=== PATIENT | female | born 1995 | race Caucasian/White ===

== ENCOUNTER 2020-10-15 | Emergency (ER) | payer OTHER, SELFPAY ==
--- NOTE | 2020-10-15 00:16 | ED.ABDPAIN ---
HPI - Abdominal Pain General Chief Complaint: Abdominal Pain Stated Complaint: abd pain, diarrhea Time Seen by Provider: 10/15/20 00:04 History of Present Illness HPI narrative: Epigastric pain for the past few days. Radiates to the LLQ. Associated with both diarrhea and constipation. Reports that she is not nauseated, but has no appetite. No fever, cough, SOB. Related Data Allergies Allergy/AdvReac Type Severity Reaction Status Date / Time sulfamethoxazole Allergy Mild HIVES Verified 02/12/19 20:56 trimethoprim Allergy Mild HIVES Verified 02/12/19 20:56 Review of Systems Review of Systems: All systems reviewed & are unremarkable except as noted in HPI and below Constitutional: Constitutional: Denies chills and Denies fever(s) ENT: Denies sore throat Cardiovascular: Cardiovascular: Denies chest pain Respiratory: Respiratory: Denies cough and Denies dyspnea Gastrointestinal: Gastrointestinal: Reports abdominal pain, Reports constipation, Reports diarrhea, Denies nausea and Denies vomiting Genitourinary: Genitourinary: Denies hematuria and Denies dysuria Musculoskeletal: Musculoskeletal: Denies back pain Neurologic: Denies dizziness and Denies weakness [facility] Past Medical History Medical History (Updated 10/20/20 @ 20:46 by Hemanth Muñoz MD) Obesity Family History Family History (Updated 10/20/20 @ 20:47 by Hemanth Muñoz MD) Other Diabetes mellitus Heart disease Social History Social History (Updated 10/20/20 @ 20:47 by Hemanth Muñoz MD) Gender identity (if verbalized by the patient): Female Exam Const: General: no acute distress and alert Nutritional Appearance: obese Orientation/consciousness: patient oriented x3 HENMT: Head: normal to inspection Neck: Neck: normal visual inspection Resp: Effort & Inspection: normal respiratory effort Auscultation: clear to auscultation bilaterally Cardio: Rate: regular rate Rhythm: regular rhythm GI: Inspection: non-distended GI Palp: Yes Soft to palpation, Yes Tenderness to palpation present (GI) (epigastric), No Guarding due to palpation present (GI) and No Rebound tenderness present Skin: General skin exam: normal color Neuro: General: patient oriented x3, moves all extremities and CN's II-XI intact bilaterally Speech: normal speech Extrem: General: normal to inspection Course Vital Signs Vital signs: Vital Signs Temperature 36.9 C 10/15/20 00:17 Pulse Rate 86 10/15/20 00:17 Respiratory Rate 18 10/15/20 00:17 Blood Pressure 146/79 H 10/15/20 00:17 Pulse Oximetry 97 10/15/20 00:17 Temperature 36.9 C 10/15/20 00:17 Pulse Rate 81 10/15/20 03:08 Respiratory Rate 18 10/15/20 03:08 Blood Pressure 134/74 10/15/20 03:08 Pulse Oximetry 99 10/15/20 03:08 MDM - Abdominal Pain MDM Narrative Medical decision making narrative: UA consistent with UTI. Differential Diagnosis Differential diagnosis: Likely gastroenteritis, pancreatitis and other Medical Records Attestation: I reviewed the patient's medical records. Lab Data Attestation: I reviewed the patient's lab results. Result diagrams: 10/15/20 00:34 10/15/20 00:34 Labs: Lab Results 10/15/20 10/15/20 10/15/20 Range/Units 00:34 00:34 00:34 WBC 12.2 H (4.5-10.0) K/mm3 RBC 4.84 (4.2-5.4) M/mm3 Hgb 14.4 (12.0-15.0) g/dL Hct 43.8 (37.0-47.0) % MCV 90.5 (80-100) fl MCH 29.8 (26-34) pg MCHC 32.9 (32-36) g/dl RDW 13.8 (11.5-14.5) % Plt Count 332 (150-375) k/mm3 MPV 10.2 (7.4-10.4) fl Immature Gran % (Auto) 0.4 (0-0.5) % Neut % (Auto) 61.5 (45.5-73.1) % Lymph % (Auto) 28.1 (18.3-44.2) % [place] % (Auto) 6.2 (2.6-8.5) % Eos % (Auto) 3.2 (0-4.4) % Baso % (Auto) 0.6 (0.2-1.2) % Lymph # (Auto) 3.42 H (0.9-3.2) K/mm3 [place] # (Auto) 0.8 H (0.1-0.6) K/mm3 Eos # (Auto) 0.4 H (0-0.3) K/mm3 Baso # (Auto) 0.1 (0.0-0
[2020-10-15 00:17] VITALS: BP 146/79; PULSE 86; RESP 18; TEMP 36.9; O2SAT 97
[2020-10-15 01:01] LABS: Alanine Aminotransferase 54 U/L (4-35); Albumin Level 3.9 g/dL (3.5-5.1); Alkaline Phosphatase 63 U/L (38-126); Anion Gap 6 mmol/L (8-16); Aspartate Amino Transferase 36 U/L (14-36); Bilirubin,Total 0.3 mg/dL (0.2-1.3); Blood Urea Nitrogen 7 mg/dL (7-17); Calcium 9.1 mg/dL (8.4-10.2); Carbon Dioxide 25 mmol/L (22-30); Chloride 108 mmol/L (98-107); Estimated CRCL calculation 158 ml/min; Estimated Glomerular Filt Rate > 60; Glucose 109 mg/dL (65-105); Lipase 79 U/L (23-300); Potassium 3.8 mmol/L (3.4-5.0); Sodium 139 mmol/L (137-145)
[2020-10-15 01:09] LABS: Basophils Absolute Auto 0.1 K/mm3 (0.0-0.1); Basophils Percent Auto 0.6 % (0.2-1.2); Eosinophils Absolute Auto 0.4 K/mm3 (0-0.3); Eosinophils Percent Auto 3.2 % (0-4.4); Hematocrit 43.8 % (37.0-47.0); Hemoglobin 14.4 g/dL (12.0-15.0); Immature Granulocyte Absolute 0.05 K/mm3 (0.00-0.031); Immature Granulocyte Percent A 0.4 % (0-0.5); Lymphocytes Absolute Auto 3.42 K/mm3 (0.9-3.2); Lymphocytes Percent Auto 28.1 % (18.3-44.2); Mean Corpuscular HGB Conc 32.9 g/dl (32-36); Mean Corpuscular Hemoglobin 29.8 pg (26-34); Mean Corpuscular Volume 90.5 fl (80-100); Mean Platelet Volume 10.2 fl (7.4-10.4); Monocytes Absolute Auto 0.8 K/mm3 (0.1-0.6); Monocytes Percent Auto 6.2 % (2.6-8.5); Neutrophils Absolute Auto 7.5 K/mm3 (1.3-6.7); Neutrophils Percent Auto 61.5 % (45.5-73.1); Platelet Count Result 332 k/mm3 (150-375); Red Blood Count 4.84 M/mm3 (4.2-5.4); Red Cell Distribution Width 13.8 % (11.5-14.5); White Blood Count 12.2 K/mm3 (4.5-10.0)
[2020-10-15 01:10] LABS: Add Urine Microscopic? YES; Appearance Urine Cloudy (Clear); Bacteria Urine Trace /hpf; Bilirubin Urine Negative (Negative); Blood Urine Negative (Negative); Color Urine Amber (Yellow); Glucose Urine UA Negative (Negative); Ketones Urine Negative (Negative); Leukocyte Esterase Ur Trace LEU/UL (Negative); Mucus Urine Few /lpf; Nitrate Urine Positive (Negative); Protein Urine 1+ mg/dL (Negative); Specific Grav Ur 1.023 (1.001-1.035); Squamous Epithelial Cell Urine Many /hpf (Few); Urobilinogen Urine Negative mg/dL (<2.0)
[2020-10-15] MEDS: ONDANSETRON INJ 4 MG/2 ML VIAL IV PUSH (01:26)
[2020-10-15] MEDS: PANTOPRAZOLE SODIUM IV 40 MG VIAL IV PUSH (01:27)
[2020-10-15] MEDS: SODIUM CHLORIDE 0.9% IV 1,000 ML 999 ML IV CONT (01:27)
[2020-10-15 03:08] VITALS: BP 134/74; PULSE 81; RESP 18; O2SAT 99
== END 2020-10-15 03:10 | disposition home or self-care (01) ==
PROVIDERS: Emergency Provider Emergency Medicine
DX: N39.0 Urinary tract infection, site not specified (principal); R10.13 Epigastric pain; E66.9 Obesity, unspecified; Z68.42 Body mass index [BMI] 45.0-49.9, adult
CPT/HCPCS: 36415; 80053; 81001; 81025; 83690; 85025; 87077; 87086; 87088; 87186; 96365; 96375; 99284; A9270; C9113; J0696; J2405; J7030

== ENCOUNTER 2021-02-19 17:21 | Emergency (ER) | payer OTHER, SELFPAY ==
[2021-02-19 17:23] VITALS: BP 129/88; PULSE 96; RESP 20; TEMP 36.4; O2SAT 98
--- NOTE | 2021-02-19 17:56 | PC.NURSE ---
In room to draw blood, pt's gown on the bed and pt is no longer in the room. Check in waiting room, no one in waiting room. Assume pt left prior to testing.
== END 2021-02-19 17:54 | disposition left against medical advice (07) ==
PROVIDERS: Emergency Provider Emergency Medicine
DX: R05 Cough (principal)
CPT/HCPCS: 99199

== ENCOUNTER 2022-05-19 10:48 | Emergency (ER) | payer OTHER, SELFPAY ==
[2022-05-19 10:54] VITALS: BP 140/78; PULSE 88; RESP 16; TEMP 36.2; O2SAT 100
== END 2022-05-19 12:55 | disposition left against medical advice (07) ==
DX: H92.01 Otalgia, right ear (principal)
CPT/HCPCS: 99199

== ENCOUNTER 2023-01-28 15:33 | Emergency (ER) | payer OTHER, SELFPAY ==
[2023-01-28 15:34] VITALS: BP 155/89; PULSE 67; RESP 15; TEMP 36.5; O2SAT 96
[2023-01-28] MEDS: TETANUS,DIPHTHERIA,AC PERTUSSIS ADULT (0.5 ML) BOOSTRIX IM (16:57)
--- NOTE | 2023-01-28 17:10 | ED.WOUNDLAC ---
HPI - Wound/Laceration General Chief Complaint: Wound/Laceration Stated Complaint: cut my hand Time Seen by Provider: 01/28/23 16:51 History of Present Illness HPI narrative: Patient was [place] the gas station and her left hand got caught on something which tore her hand open and it started bleeding. Last tdap 2016. Related Data Home Medications Medication Instructions Recorded Confirmed No Home Medications 02/19/21 02/19/21 Allergies Allergy/AdvReac Type Severity Reaction Status Date / Time sulfamethoxazole Allergy Mild HIVES Verified 01/28/23 15:36 trimethoprim Allergy Mild HIVES Verified 01/28/23 15:36 Review of Systems Review of Systems: M/S: Hand hurts SKIN: Cut to hand NEURO: [No focal numbness or weakness] PMFSH Past Medical History Medical History Obesity Family History Family History Other Diabetes mellitus Heart disease Social History Social History Gender identity (if verbalized by the patient): Female Exam Narrative: EXAMINATION OF ORGAN SYSTEMS/BODY AREAS: Constitutional: Vital signs per nursing GENERAL:[No acute distress, non-toxic appearing.] HEAD: Normal with no signs of head trauma. EYES: EOMI, conjunctiva normal ENT: Hearing grossly intact LUNGS: Nonlabored breathing. HEART: [Regular rate and rhythm] EXT: Normal range of motion, able to make fist, abduct /extend /flex/adduct thumb SKIN: 2cm irregular laceration with avulsion to dorsal left hand NEURO: [Alert and oriented x 3. No gross focal sensory or strength deficits.] PSYCH: Normal affect Course Vital Signs Vital signs: Vital Signs Temperature 97.7 F 01/28/23 15:34 Pulse Rate 67 01/28/23 15:34 Respiratory Rate 15 01/28/23 15:34 Blood Pressure 155/89 H 01/28/23 15:34 Pulse Oximetry 96 01/28/23 15:34 Oxygen Delivery Room Air 01/28/23 15:34 Temperature 97.7 F 01/28/23 15:34 Pulse Rate 67 01/28/23 15:34 Respiratory Rate 15 01/28/23 15:34 Blood Pressure 155/89 H 01/28/23 15:34 Pulse Oximetry 96 01/28/23 15:34 Oxygen Delivery Room Air 01/28/23 15:34 Procedures Laceration Laceration 1: Date: 01/28/23 Time: 17:15 Site: hand Side (If applicable): left Size (cm): 2 Description: irregular and clean Depth: simple, single layer Local Anesthetic: lidocaine 1% Amount of anesthesia used (mL): 2 Pre-repair: wound explored, irrigated extensively and wound margins revised ====== Skin Level ====== Skin layer closed with: nylon Size (cm): 3-0 Number of sutures: 3 Technique: simple, interrupted ====== Subcutaneous Layer ====== ====== Muscle Layer ====== ====== Tendon Layer ====== MDM - Wound/Laceration MDM Narrative Medical decision making narrative: Patient presenting with injury to her left hand, vital stable and neurovascularly intact with good movement of hand, wound is not deep nor does it look contaminated, however it is irregular with avulsion, this is irrigated extensively, her tetanus shot is updated, I did revise the margins and try to reapproximate the wound as best as I could, with good appearance, patient tolerated this well, minimal bleeding. Dressing placed and patient to follow-up with her doctor in 10 to 14 days for suture removal, wound care instructions given and return precautions provided. Discharge Plan Discharge Clinical Impression: Laceration Patient Disposition: Home, Self-Care Condition: Stable Instructions: Antibiotic Form, Care For Your Stitches (ED), Laceration (ED) Additional Instructions: You will need your stitches removed in 10-14 days, you can follow up with your doctor; you can always come back if your wound looks worse or any concern for infection. Try to keep the wound akua
== END 2023-01-28 17:42 | disposition home or self-care (01) ==
PROVIDERS: Emergency Provider Emergency Medicine
DX: S61.412A Laceration without foreign body of left hand, initial encounter (principal); W26.9XXA Contact with unspecified sharp object(s), initial encounter; E66.9 Obesity, unspecified; Z68.42 Body mass index [BMI] 45.0-49.9, adult; Z23 Encounter for immunization
CPT/HCPCS: 12001; 90471; 90715; 99282

== ENCOUNTER 2023-07-04 14:06 | Emergency (ER) | payer OTHER, SELFPAY ==
--- NOTE | ~2023-07-04 | CT_ITS ---
EXAMINATION: CT abdomen pelvis w con DATE: 07/04/2023 16:03 INDICATION: Left flank pain TECHNIQUE: Computed tomography (CT) of the abdomen and pelvis was performed with 100 mL Omnipaque-350 intravenous contrast. Automated exposure control and iterative reconstruction technique were employe d. The dose-length product was 1816.58 mGy-cm. COMPARISON: None FINDINGS: 7 mm right lower lobe nodule. Arch size is normal. No pericardial or pleural effusion. Fat attenuatio n gallstones within the otherwise normal-appearing gallbladder. Liver, spleen, pancreas, bilateral ad renal glands and kidneys are normal. Likely surgical clip at the tip of a short appendiceal stump pos t appendectomy with differential including appendicolith at the tip of a short appendix. No periappen diceal inflammatory stranding to suggest acute appendicitis. Bowels are otherwise unremarkable. Bladd er, anteverted uterus and bilateral adnexa are unremarkable. No free intraperitoneal gas or fluid. No pathologically enlarged abdominal or pelvic lymphadenopathy. Mild thoracic spondylosis. IMPRESSION: 1. No acute intra-abdominal/pelvic process. 2. Cholelithiasis. Reviewed, dictated and finalized at location A.
[2023-07-04 14:04] VITALS: BP 134/72; PULSE 73; RESP 14; TEMP 36.2; O2SAT 99
[2023-07-04 14:18] LABS: Basophils Absolute Auto 0.1 K/mm3 (0.0-0.1); Basophils Percent Auto 0.5 % (0.2-1.2); Eosinophils Absolute Auto 0.1 K/mm3 (0-0.3); Eosinophils Percent Auto 0.9 % (0-4.4); Hematocrit 43.2 % (37.0-47.0); Hemoglobin 14.4 g/dL (12.0-15.0); Immature Granulocyte Absolute 0.03 K/mm3 (0.00-0.031); Immature Granulocyte Percent A 0.3 % (0-0.5); Lymphocytes Absolute Auto 1.92 K/mm3 (0.9-3.2); Lymphocytes Percent Auto 20.6 % (18.3-44.2); Mean Corpuscular HGB Conc 33.3 g/dl (32-36); Mean Corpuscular Hemoglobin 30.1 pg (26-34); Mean Corpuscular Volume 90.4 fl (80-100); Mean Platelet Volume 9.9 fl (7.4-10.4); Monocytes Absolute Auto 0.4 K/mm3 (0.1-0.6); Monocytes Percent Auto 4.3 % (2.6-8.5); Neutrophils Absolute Auto 6.9 K/mm3 (1.3-6.7); Neutrophils Percent Auto 73.4 % (45.5-73.1); Platelet Count Result 394 k/mm3 (150-375); Red Blood Count 4.78 M/mm3 (4.2-5.4); Red Cell Distribution Width 12.8 % (11.5-14.5); White Blood Count 9.3 K/mm3 (4.5-10.0)
[2023-07-04 14:29] LABS: Alanine Aminotransferase 70 U/L (6-35); Albumin Level 4.4 g/dL (3.5-5.1); Alkaline Phosphatase 83 U/L (38-126); Anion Gap 10 mmol/L (8-16); Aspartate Amino Transferase 53 U/L (14-36); Bilirubin,Total 0.8 mg/dL (0.2-1.3); Blood Urea Nitrogen 13 mg/dL (7-17); Calcium 9.2 mg/dL (8.4-10.2); Carbon Dioxide 22 mmol/L (22-30); Chloride 108 mmol/L (98-107); Estimated CRCL calculation 154 ml/min; Estimated Glomerular Filt Rate > 60; Glucose 108 mg/dL (65-110); Lipase 87 U/L (23-300); Sodium 140 mmol/L (137-145)
[2023-07-04 14:51] LABS: Appearance Urine Turbid (Clear); Bacteria Urine 4+ /hpf; Bilirubin Urine 1+ (Negative); Blood Urine 1+ (Negative); Color Urine Dark Yellow (Yellow); Glucose Urine UA Negative (Negative); Ketones Urine 2+ mg/dL (Negative); Leukocyte Esterase Ur 1+ LEU/UL (Negative); Nitrate Urine Positive (Negative); Non Pathogenic Casts 0-2; Protein Urine 1+ mg/dL (Negative); Specific Grav Ur 1.027 (1.001-1.035); Squamous Epithelial Cell Urine Few /hpf (Few); WBC Urine 21-50 /hpf; pH Urine 7.5 (5.0-9.0)
[2023-07-04 14:55] LABS: Add Urine Microscopic? YES
[2023-07-04] MEDS: SODIUM CHLORIDE 0.9% IV 1,000 ML 999 ML IV CONT (15:47)
[2023-07-04] MEDS: ONDANSETRON INJ 4 MG/2 ML VIAL IV PUSH (15:48)
[2023-07-04] MEDS: MORPHINE SULFATE (*CRX) 4 MG/ML INJ IV PUSH (15:50)
[2023-07-04 16:08] VITALS: BP 116/62; PULSE 68; RESP 16; O2SAT 99
--- NOTE | 2023-07-04 17:02 | ED.GENADULT ---
HPI - General Adult General Chief complaint: Nausea/Vomiting/Diarrhea Stated complaint: nausea and vomiting x1 day Time Seen by Provider: 07/04/23 14:30 Source: patient Mode of arrival: ambulatory Limitations: no limitations History of Present Illness HPI narrative: This is a 28-year-old female who presents to the ED via EMS for chief complaint of nausea and vomiting along with left flank pain beginning yesterday. She states she feels that she may have a UTI that she feels similar to UTIs in the past. Denies abdominal pain, hematemesis, fevers, chills, problems with bowel movements. She reports decreased appetite due to nausea. She has not had any urinary burning or hematuria. Denies any further complaints. Related Data Allergies Allergy/AdvReac Type Severity Reaction Status Date / Time No Known Allergies Allergy Verified 07/04/23 14:02 Review of Systems Review of Systems: All systems as dictated in HPI Exam Narrative: GENERAL: Well-appearing, well-nourished, and in no acute distress. HEAD: Normocephalic, atraumatic. EYES: PERRLA and EOMI. ENT: Nares clear, no rhinorrhea or epistaxis. Mucous membranes moist. Oropharynx without tonsillar hypertrophy exudate or other lesions. NECK: Supple. No adenopathy or masses. CHEST: No respiratory distress. Clear to auscultation. No wheezes rales or rhonchi HEART: Regular rate and rhythm. No murmur heard. Normal peripheral pulses. ABDOMEN: Mild left flank tenderness. Negative right flank tenderness. Soft, otherwise nontender, nondistended, normal active bowel sounds. MSK: Normal range of motion. No edema. SKIN: Warm, dry, no rash. NEURO: Alert and oriented x3. No focal deficits. PSYCH: Normal mood and affect. Course Vital Signs Vital signs: Vital Signs Temperature 97.1 F L 07/04/23 14:04 Pulse Rate 73 07/04/23 14:04 Respiratory Rate 14 07/04/23 14:04 Blood Pressure 134/72 07/04/23 14:04 Pulse Oximetry 99 07/04/23 14:04 Oxygen Delivery Room Air 07/04/23 14:04 Temperature 97.1 F L 07/04/23 14:04 Pulse Rate 68 07/04/23 16:08 Respiratory Rate 16 07/04/23 16:08 Blood Pressure 116/62 07/04/23 16:08 Pulse Oximetry 99 07/04/23 16:08 Oxygen Delivery Room Air 07/04/23 14:04 Medical Decision Making MDM Narrative Medical decision making narrative: This is a 28-year-old female who presents to the ED with chief complaint of nausea/vomiting along with left flank pain for the past couple of days. Vitals are normal. Exam does reveal some left flank tenderness. Lab work shows normal white count. CMP unremarkable. UA shows overt evidence of UTI with positive nitrites and leuk esterase. CT abdomen pelvis shows no acute intra-abdominal findings. Symptoms certainly consistent with UTI, she may have a bit of pyelonephritis going on with the left flank pain. She is well-appearing on my reevaluation. She is received fluids, antibiotics and nausea meds here. She feels comfortable going home. Prescriptions for Zofran and Keflex given. Pt will be discharged in stable condition. Return precautions given and supportive measures discussed. Pt is understanding and agreeable with plan for discharge and follow-up with PCP. Vital Signs Vital Signs: Vital Signs Temperature 97.1 F L 07/04/23 14:04 Pulse Rate 73 07/04/23 14:04 Respiratory Rate 14 07/04/23 14:04 Blood Pressure 134/72 07/04/23 14:04 Pulse Oximetry 99 07/04/23 14:04 Oxygen Delivery Room Air 07/04/23 14:04 Temperature 97.1 F L 07/04/23 14:04 Pulse Rate 68 07/04/23 16:08 Respiratory Rate 16 07/04/23 16:08 Blood Pressure 116/62 07/04/23 16:08 Pulse Oximetry 99 07/04/23 16:08 Oxygen Delivery Room Air 07/04/23 14:04 Lab Data 07/04/23 14:11 07/04/23 14:11 Labs: Lab Results 07/04/23 07/04/23 Range/Units 14:11 14:18 WBC 9.3 (4.5-10.0) K/mm3 RBC 4.78 (4.2-5.4) M/mm3 Hgb 14.4 (12.0-
== END 2023-07-04 18:09 | disposition home or self-care (01) ==
PROVIDERS: Student in an Organized Health Care Education/Training Program; Emergency Provider Physician Assistant; PCP Family Medicine
DX: N39.0 Urinary tract infection, site not specified (principal)
CPT/HCPCS: 36415; 74177; 80053; 81001; 81025; 83690; 85025; 87077; 87086; 87088; 87186; 96361; 96365; 96375; 99284; J0696; J2270; J2405; J7030; Q9967

== ENCOUNTER 2025-10-04 19:18 | Emergency (ER) | payer OTHER, BC, SELFPAY ==
--- NOTE | ~2025-10-04 | CT_ITS ---
EXAMINATION: CT soft tissue neck w con DATE: 10/04/2025 21:15 INDICATION: Right-sided tonsillar enlargement. TECHNIQUE: Computed tomography (CT) of the neck was performed with 75 mL Omnipaque-350 intravenous contrast. Automated exposure control and iterative reconstruction technique were employed. The dose-length product was 576.16 mGy-cm. COMPARISON: None FINDINGS: Significant, asymmetric enlargement of the right tonsil is noted, measuring 8.3 cm in axial dimension. Ill-defined hypodensity within the tonsil is noted. However, no well-circumscribed abscess is visible. Significantly enlarged cervical lymph nodes along the jugular chain on the right side, measuring 10 mm in short axis. No evidence of retropharyngeal abscess. No obstruction of the airway in the hypopharynx and laryngeal region. IMPRESSION: 1. Significant, asymmetric enlargement of the right tonsil. Heterogeneous enhancement. No well-circumscribed peritonsillar abscess. 2 enlarged lymph nodes along the jugular chain on the right side measuring up to 10 mm in short axis. Reviewed, dictated and finalized at location T. CLINICAL RESEARCH IMPRESSION: 1. Significant, asymmetric enlargement of the right tonsil. Heterogeneous enhan cement. No well-circumscribed peritonsillar abscess. 2 enlarged lymph nodes along the jugular chain on the right side measuring up to 10 mm in short axis.
[2025-10-04 19:21] VITALS: BP 152/93; PULSE 110; RESP 15; TEMP 36.3; O2SAT 98
[2025-10-04 19:30] VITALS: BP 152/93; PULSE 100; RESP 14; RESP 15; TEMP 36.9; O2SAT 100; O2SAT 98
[2025-10-04 20:07] LABS: Strep Group A RT-PCR NOT DETECTED (Negative)
--- OUTSIDE RECORDS SUMMARY | 2025-10-04 20:16 | XMS_ITS | Data Portability ---
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 Plan of Treatment Reminders Order Date Submit Date Provider Last Modified By Organization Details Last Modified Time Details Appointments None recorded. Lab test, urine 2020 021 [email or web address] In-Office Order, Internal Use Only DO Not Attach Compendium DO Not Attach Compendium, Do Not Delete/merge, [id number] 1 13:43:47 SARS CoV 2 RNA (COVID-19) , QL, pattern setter-PCR, respirator y specimen - [place] ([facility]) 2019 020 [facility] (Lab), [address] [place], [address], 0 16:21:23 Referral None recorded. Procedures None recorded. Surgeries None recorded. Imaging None recorded. Medication Orders Nexplanon 68 mg subdermal implant 2020 021 [email or web address] Not available 3 14:29:26 Nexplanon 68 mg subdermal implant 2020 021 [email or web address] Not available 3 14:29:26 Patient TargetsNo targets recorded. Patient Instructions Encounter Date Encounter Id Patient Instructions Last Modified By Organization Details Last Modified Time 06/23/2020 [id number] Reviewed the following recommendations: -Stay home and separate from others as much as possible. -Monitor your symptoms and seek medical attention for trouble breathing, persistent chest pain, confusion, or bluish lips or face. -Wear a mask if you must be around other people. -Wash your hands often for 20 seconds with soap and water and clean high-touch surfaces daily -You may discontinue home isolation if your symptoms are improving, it has been 10 days since symptoms started, and you have been fever free for at least 3 days. [email or web address] Not available 06/23/2020 13:10:51 01/04/2023 [id number] Quitting Tobacco : Care Instructions Not available 01/04/2023 14:35:40 A healthy lifestyle: care instructions Not available 01/04/2023 14:35:40 11/14/2023 [id number] body mass index: care instructions Not available 11/14/2023 12:40:15 learning about healthy weight [email or web address] Not available 11/14/2023 12:40:15 bartholin gland cyst: care instructions [email or web address] Not available 11/14/2023 12:40:15 Reason for Referral None Reported. Results Created Date Observation Date Name Description Value Unit Range Abnormal Flag Note LastModifiedBy Organization Detail LastModifiedTime 06/02/20 20 06/02/2020 SARS CoV 2 RNA (COVI D-19) , QL, pattern setter-P CR, respi rator y speci men sars - cov - 2 PCR NON DETECT ED mL Not Available [facility] (Lab) [address] [place], [address], 06/08/2020 09:14:15 06/02/20 20 06/02/2020 SARS CoV 2 RNA (COVI D-19) , QL, pattern setter-P CR, respi rator y speci men covididph2 COMME NTS: A negat saul resul t does not precl ude SARS- CoV-2 infec tion and shoul d not be used as the sole basis for treat ment or other patie nt manag ement decis ions. Negat saul resul ts must be combi bryon with clini aretha obser vatio ns, patie nt histo ry, and epide miolo gical infor matio n Perfo rmanc e jeff cteri stics for the TaqPa COVID -19 Combo , Real- time PCR Diagn ostic test have been deter mined by the [facility] danish varela and are incor porat ed as part of the Emerg ency Use Autho rizat ion. Not Available [facility] (Lab) [address] [place], [address], 06/08/2020 09:14:15 06/02/20 20 06/02/2020 SARS CoV 2 RNA (COVI D-19) , QL, pattern setter-P CR, respi rator y speci men covididph3 Provi davina and patie nt fact sheet s are avail able at: https ://ww w.fda .gov/ medic al-de vices /margarita gency -situ ation s-med ical- devi es/em ergen cy-us e-aut horiz ation s#cor onavi rus20 19 Not Available [facility] (Lab) [address] [place], [address], 06/08/2020 09:14:15 06/02/20 20 06/02/2020 SARS CoV 2 RNA (COVI D-19) , QL, pattern setter-P CR, respi rator y speci men covididph4 Perfo rmed at: [facility] at[facility] es [address] [place] [address] CLIA No. [id number] Not Available [facility] (Lab) [address] [facility], [place], [address], 06/08/2020 09:14:15 06/23/20 20 06/23/2020 SARS CoV 2 RNA (COVI D-19) , QL, pattern setter-P CR, respi rator y speci men sars - cov - 2 PCR NEGATI VE mL Not Available [facility] (Lab) [address] [place], [address], 06/24/2020 17:49:52 06/23/20 20 06/23/2020 SARS CoV 2 RNA (COVI D-19) , QL, pattern setter-P CR, respi rator y speci men covidcom1 COMME NTS: This assay is desig bryon to detec t the RdRp and N genes of SARS- CoV-2 using nucle ic acid ampli ficat ion. A negat saul resul t does not precl ude the possi bilit y of 2019- nCoV infec tion since the adequ acy of sampl e colle ction and/o r low viral burde n may resul t in the prese nce of viral nucle ic acids level s below the angelica tical sensi tivit y of this test metho d. Not Available [facility] (Lab) [address] [facility], [place], [address], 06/24/2020 17:49:52 06/23/2006/23/2020 SARS CoV 2 RNA (COVI D-19) , QL, pattern setter-P CR, respi rator y speci men covidcom2 Posit saul resul ts are indic ative of the prese nce of SARS- CoV-2 RNA and do not rule out bacte rial infec tion or co-in fecti on with other virus es. Not Available [facility] (Lab) [address] [facility], [place], [address], 06/24/2020 17:49:52 06/23/20 20 06/23/2020 SARS CoV 2 RNA (COVI D-19) , QL, pattern setter-P CR, respi rator y speci men covidcom3 Test resul ts shoul d be used along with other clini aretha obser vatio ns, patie nt histo ry, epide miolo gical infor matio n and labor atory data in makin g the diagn osis. Not Available [facility] (Lab) [address] [facility], [place], [address], 06/24/2020 17:49:52 06/23/20 20 06/23/2020 SARS CoV 2 RNA (COVI D-19) , QL, pattern setter-P CR, respi rator y speci men covidcom4 This test has recei henrik FDA Emerg ency Use Autho rizat ion and has been verif ied by [facility] . This test is only autho rized for the durat ion of the decla ratio n and the circu mstan reynaldo that exist to justi fy the autho rizat ion of the emerg ency use of in vitro diagn ostic tests for the detec tion of SARS- CoV-2 virus and/o r diagn osis of COVID -19 infec tion under secti on 564 (b) (1) of the Act. 11 U.S.C . 360bb b-3 (b) (1), unles s the autho rizat ion is termi nated or revok ed soone r. Not Available [facility] (Lab) [address] [place], [address], 06/24/2020 17:49:52 06/23/20 20 06/23/2020 SARS CoV 2 RNA (COVI D-19) , QL, pattern setter-P CR, respi rator y speci men covidcom5 [facility] [employer] is certi fied under CLIA- 88 as quali fied to perfo rm high compl exity testi ng. This testi ng was perfo rmed in the [facility] [employer] [place] [address] (CLIA Licen se #[id number], CAP #[id number], AU-ID #[id number]). Not Available [facility] (Lab) [address] [facility], [place], [address], 06/24/2020 17:49:52 06/23/20 20 06/23/2020 SARS CoV 2 RNA (COVI D-19) , QL, pattern setter-P CR, respi rator y speci men covidcom6 Facts heet for healt hcare provi ders: https ://ww w.fda .gov/ media /1367 56/do wnloa d Facts heet for patie nts: https ://ww w.fda .gov/ media /1362 57/do wnloa d Not Available [facility] (Lab) [address] [place], [address], 06/24/2020 17:49:52 05/17/20 21 05/17/2021 pregn brigid test, urine HCG negati ve Not Available In-Office Order Internal Use Only DO Not Attach Compendium DO Not Attach Compendium, Do Not Delete/merge, [id number] 05/17/2021 13:43:40 Result Notes None recorded. Problems Name Problem SNOMED Code Status Onset Date Resolution Date Notes Provider Name and Address Organization Details Recorded Time Acute asthma 189335921 Active resolved with 06-08-15 course of treatmen t. (as of 06-22-15 visit) LUIS Mejía_PC Attn: Accounting ,[address] [place], [address] , [place] 5 17:17:15 Screenin g for disorder Completed 201605/10/2021 ZANDRA RUIZ Attn: Accounting ,[address] [place], [address] , [place] 08:50:28 Obesity 177611088 Active 2016 Rebekah Suarez PA-C Attn: Accounting ,[address] [place], [address] , [place] 15:32:08 Venereal disease screenin g Completed 201605/10/2021 ZANDRA RUIZ Attn: Accounting ,[address] [place], [address] , [place] 08:50:34 Tobacco dependen ce syndrome 73529249 Active 2016 Rebekah Suarez PA-C Attn: Accounting ,[address] [place], [address] , [place] 15:32:28 Active or passive immuniza tion Active 2016 Rebekah Suarez PA-C Attn: Accounting ,[address] [place], [address] , [place] 15:33:44 Tubercul osis screenin g Active 2016 Rebekah Suarez PA-C Attn: Accounting ,[address] [place], [address] , [facility] - [facility] 7 15:33:48 History and physical examinat ion, school Completed 201605/10/2021 ZANDRA RUIZ Attn: Accounting ,[address] [place], [address] , [facility] - [facility] 1 08:50:24 Contrace ption care Completed 201605/10/2021 ZANDRA RUIZ Attn: Accounting ,[address] [place], [address] , [facility] - [facility] 1 08:50:18 Body mass index 40+ - severely obese 717716989 Active 2017 Rebekah Suarez PA-C Attn: Accounting ,[address] [place], [address] , [facility] - SI 8 15:42:34 Depressi ve disorder 54800813 Active 2017 Rebekah Suarez PA-C Attn: Accounting ,[address] [place], [address] , [facility] - SI 8 15:44:39 Allergic disposit ion 197062145 Active 2017 Rebekah Suarez PA-C Attn: Accounting ,[address] [place], [address] , [facility] - [facility] 8 16:00:25 Problem Notes None recorded. Procedures Surgical History Date Name Laterality Status Provider Name and Address Organization Details Recorded Time 02/13/20 Date of Last Pap Smear completed Isabel Schreiber [place] - [place] 11/14/2023 11:56:55 01/04/20 23 Control Implant Removal completed ZANDRA RUIZ Attn: Accounting,[address] [place], [address], [facility] 01/04/2023 14:36:30 05/17/20 21 Control Implant Replacement completed ZANDRA RUIZ Attn: Accounting,[address], [place], [address], [facility] - [facility] 05/17/2021 13:41:50 02/26/20 17 Control Implant Insertion completed Rebekah Suarez PA-C Attn: Accounting,[address], [place], [address], [facility] - [facility] 02/25/2017 17:30:59 Appendectomy completed George Rico [place] - [place] 14:45:22 Adenoidectomy completed Gracy Lee [place] [facility] 06/08/2015 16:22:24 Ear Tube completed Gracy Lee MA [facility] 06/08/2015 16:22:24 Imaging Results None recorded. Procedure Notes None recorded. Medical Equipment None Reported. Allergies No known drug allergies Medications Name Sig Start Date Stop Date Status Note LastModified by Organization Details LastModified Time amoxicilli n 500 mg capsule 12/26 completed Not Available Not Available Not Available methocarba mol 500 mg tablet 12/26 completed Not Available Not Available Not Available neomycin-p olymyxin-h ydrocort 3.5 mg/mL-10,0 00 unit/mL-1 % ear solution 07/06 completed Not Available Not Available Not Available clindamyci n HCl 300 mg capsule TAKE 2 CAPSULES BY MOUTH THREE TIMES DAILY FOR 10 DAYS active Not Available Not Available No t Available azithromyc in 250 mg tablet 12/26 completed Not Available Not Available Not Available hydrocodon e 5 mg-acetami nophen 325 mg tablet 12/26 completed Not Available Not Available Not Available ondansetro n HCl 4 mg tablet TK 1 T PO Q 8 H 05/10 completed Not Available Not Available Not Available prednisone 20 mg tablet Take 2 tablets twice a day by oral route for 5 days. 12/26 completed Not Available Not Available Not Available Tubersol 5 tub. unit/0.1 mL intraderma l injection solution Take 0.1 mL by intrader mal route. 05/15 completed TO RETURN IN 2 DAYS TO BE READ Not Available Not Available Not Available metronidaz ole 500 mg tablet 12/26 completed Not Available Not Available Not Available acetaminop hen 300 mg-codeine 30 mg tablet 02/06 completed Not Available Not Available Not Available ciprofloxa susanna 500 mg tablet 12/26 completed Not Available Not Available Not Available sulfametho xazole 800 mg-trimeth oprim 160 mg tablet 12/26 completed Not Available Not Available Not Available meloxicam 7.5 mg tablet 12/26 completed Not Available Not Available Not Available ofloxacin 0.3 % ear drops INSTILL 10 DROPS TO AFFECTED EAR EVERY 24 HOURS FOR 7 DAYS 01/04 completed Not Available Not Available Not Available amoxicilli n 875 mg tablet TAKE 1 TABLET BY MOUTH TWICE DAILY 01/04 completed Not Available Not Available Not Available famotidine 20 mg tablet 12/26 completed Not Available Not Available Not Available dicyclomin e 20 mg tablet 12/26 completed Not Available Not Available Not Available phenazopyr idine 100 mg tablet 12/26 completed Not Available Not Available Not Available hydrocodon e 7.5 mg-acetami nophen 325 mg tablet 12/26 completed Not Available Not Available Not Available cephalexin 500 mg capsule TAKE 1 CAPSULE BY MOUTH EVERY 8 HOURS FOR 10 DAYS 11/14 completed Not Available Not Available Not Available naproxen sodium 550 mg tablet 12/26 completed Not Available Not Available Not Available ibuprofen 600 mg tablet 07/06 completed Not Available Not Available Not Available methylpred nisolone 4 mg tablets in a dose pack 07/06 completed Not Available Not Available Not Available albuterol sulfate HFA 90 mcg/actuat ion aerosol inhaler INHALE 2 PUFFS BY MOUTH EVERY 4 HOURS NEEDED active Not Available Not Available No t Available ondansetro n 4 mg disintegra ting tablet DISSOLVE 1 TABLET ON THE TONGUE EVERY 8 HOURS NEEDED FOR NAUSEA OR VOMITING 11/14 completed Not Available Not Available Not Available fluticason e propionate 50 mcg/actuat ion nasal spray,susp ension 05/10 completed Not Available Not Available Not Available diazepam 5 mg tablet 12/26 completed Not Available Not Available Not Available amoxicilli n 875 mg-potassi um clavulanat e 125 mg tablet 07/06 completed Not Available Not Available Not Available Ciprodex 0.3 %-0.1 % ear drops,susp ension 07/06 completed Not Available Not Available Not Available bupropion HCl XL 300 mg 24 hr tablet, extended release TAKE 1 TABLET BY MOUTH EVERY DAY active Not Available Not Available No t Available bupropion HCl XL 150 mg 24 hr tablet, extended release TAKE 1 TABLET BY MOUTH EVERY DAY 01/04 completed Not Available Not Available Not Available nitrofuran toin monohydrat e/macrocry stals 100 mg capsule 05/10 completed Not Available Not Available Not Available ProChamber 05/15 completed Not Available Not Available Not Available Nexplanon 68 mg subdermal implant Inject 1 implant by subcutan eous route. 01/04 completed Not Available Not Available Not Available Aerochambe r Plus Flow-Vu,La rge Mask active Not Available Not Available Not Available Vitals Date Recorded Body height Body mass index (BMI) Body weight Body temperature Oxygen saturation Heart rate Systolic And Diastolic Provider Name and Address Organization Details Last Updated DateTime 4 172.72 cm 44.4 kg/m2 079627. 25 g 98.7 [degF] 97 % 99 /min 124/72 mm[Hg] Isabel Schreiber MA [facility] 4 12:00:16 Date Recorded Body height Body mass index (BMI) Body weight Heart rate Body temperature Oxygen saturation Systolic And Diastolic Provider Name and Address Organization Details Last Updated DateTime 3 172.72 cm 49.2 kg/m2 255692. 53 g 118 /min 99.4 [degF] 97 % 118/80 mm[Hg] Christal Romano MA [facility] 3 14:28:46 Date Recorded Body height Body mass index (BMI) Body weight Heart rate Body temperature Oxygen saturation Systolic And Diastolic Provider Name and Address Organization Details Last Updated DateTime 1 172.72 cm 49.2 kg/m2 069371. 14 g 98 /min 98.1 [degF] 98 % 110/78 mm[Hg] Christal Romano MA [facility] 1 08:44:53 Date Recorded Body height Provider Name an d Address Organization Details Last Updated DateTime 05/17/2021 172.72 cm Christal Romano [place] - [facility] 2020 12:33:17 Social History Question Answer Notes LastModified by Organizat ion Details LastModified Time Tobacco Smoking Status Current Every Day Smoker Gracy KARLI [place] null, [place] - [facility] 06/08/2015 16:23:26 Do You Have An Advance Directive? No Information not available 05/10/2021 Animal Exposure? Yes Informat ion not available 06/08/2015 What Is Your Level Of Caffeine Consumption? Occasional Information not available 06/08/2015 In The 14 Days Before Symptom Onset, Have You Had Close Contact With A Laboratory-confi rmed COVID-19 While That Case Was Ill? No Information not available 05/10/2021 In The 14 Days Before Symptom Onset, Have You Had Close Contact With A Person Who Is Under Investigation For COVID-19 While That Person Was Ill? No Information not available 05/10/2021 Have You Been To An Area Known To Be High Risk For COVID-19? No Information not available 05/10/2021 What Type Of Diet Are You Following? REGULAR Information not available 06/08/2015 What Is Your Home Situation? Mother Information not available 06/08/2015 Car Seat Type Or Seat Belt? Seat Belt Information not available 06/08/2015 Parent Involvement? Both Parents Involved Information not available 06/08/2015 Riding In Car Front Seat? Yes Information not available 06/08/2015 What Was The Date Of Your Most Recent Tobacco Screening? 11/14/2023 [email or web address] Information not available 11/14/2023 What Is Your Parents' Marital Status? Information not available 06/08/2015 What Is Your Relationship Status? Single Information not available 05/10/2021 Are You Sexually Active? No Information not available 05/10/2021 Do You Have Any Siblings? 2 Information not available 06/08/2015 Are You Passively Exposed To Smoke? Yes Pt Smokes 1/2 Pk Cigarettes Per Day For Past 2-3 Yrs - Discussed Health Risks [email or web address] Information not available 06/22/2015 How Much Tobacco Do You Smoke? 0.5 PPD Information not available 06/08/2015 Has Tobacco Cessation Counseling Been Provided? Yes Information not available 01/04/2023 Year In School 12 Informatio n not available 06/08/2015 Sex: Female Functional Status Question Answer Note LastModified by Organizat ion Details LastModified Time Do you use any illicit or recreational drugs? No Information not available 05/10/2021 Do you or have you ever used any other forms of tobacco or nicotine? No Information not available 01/04/2023 What is your level of alcohol consumption? Occasional Information not available 05/10/2021 Are you currently employed? Yes Information not available 05/10/2021 Mental Status None recorded. Family History Relationship Description Onset Age of this Age Resolved Age Notes LastModified by Organization Details LastModified Time Mother Cerebrovascu lar accident [email or web address] Not available 14:44:58 Medical History Condition Response Blood Diseases N Ear or Hearing Problems N Thyroid Problems N Depression N Developmental or Behavioral Disorders N Skin Problems N Premature N Anemia N Constipation N Anxiety Disorder N Diabetes N Muscle, Joint, or Bone Problems N Bedwetting N Vision or Eye Problems N Heart Problems/Murmur N Seizures/Epilepsy N Head Injury/Concussion N Cancer N Asthma Y Allergies N ADHD N Bladder or Kidney Problems N Headaches N Chicken Pox N Autism Spectrum Disorder (ASD) N Gynecological History Statement/Question Response Date of LMP 11/07/2023 Menses Monthly Y STIs/STDs N Date of Last Pap Smear 02/12/2023 Duration of Flow (days) 3 Age at Menarche 14 Current Control Method None LMP Definite Obstetrics History GPAL:G 0 P 0 0 0 0 Immunizations Vaccine Type Date Status Note Provider Nam e and Address Organization Details Recorded Time COVID-19 vaccine, vector-nr, rS-Ad26, PF, 0.5 mL 2 completed KARLI [place], [place] - [facility] 11/14/2023 11:58:00 COVID-19 vaccine, vector-nr, rS-Ad26, PF, 0.5 mL 1 completed Isabel Schre[place] [facility] 11/14/2023 11:58:00 influenza, unspecified formulation 0 completed Isabel Schreiber[place] [facility] 11/14/2023 11:58:00 influenza, unspecified formulation 3 completed Isabel Schreiber[place] [facility] 11/14/2023 11:58:00 OPV, trivalent 7 completed Isabel Schre[place] [facility] 11/14/2023 11:58:00 OPV, trivalent 7 completed Isabel Schre[place] [facility] 11/14/2023 11:58:00 OPV, trivalent 7 completed Isabel Schre[place] [facility] 11/14/2023 11:58:00 DTP-Hib 7 completed Isabel Schre[place] [facility] 11/14/2023 11:58:00 DTP-Hib 7 completed Isabel Schreiber[place] [facility] 11/14/2023 11:58:00 DTP-Hib 7 completed Isabel Schreiber[place] [facility] 11/14/2023 11:58:00 influenza, split (incl. purified surface antigen) 1 completed Isabel Schre[place] [facility] 11/14/2023 11:58:00 Hep A, pediatric, unspecified formulation 1 completed Isabel Schreiber[place] [facility] 11/14/2023 11:58:00 Influenza, split virus, quadrivalent, preservative 7 completed Not Available [facility] 11/28/2019 02:33:24 varicella 7 completed Not Available [facility] 11/28/2019 02:33:25 varicella 7 completed Not Available [facility] 11/28/2019 02:39:52 Tdap 8 completed Not Available [facility] 11/28/2019 02:35:25 meningococcal MCV4P 5 completed Not Available [facility] 11/28/2019 02:39:50 DTaP 7 completed Isabel Schre[place] [facility] 11/14/2023 11:58:00 DTaP 7 completed Isabel Schre[place] [facility] 11/14/2023 11:58:00 DTaP 7 completed Isabel Schre[place] [facility] 11/14/2023 11:58:00 DTaP 8 completed [place] [facility] 02/06/2017 15:36:31 DTaP 2 completed [place] [facility] 02/06/2017 15:36:35 Hib, unspecified formulation 7 completed Isabel Schreiber[place] [facility] 11/14/2023 11:58:00 Hib, unspecified formulation 7 completed Isabel Schre[place] [facility] 11/14/2023 11:58:00 Hib, unspecified formulation 7 completed Isabel Schre[place] [facility] 11/14/2023 11:58:00 Hib, unspecified formulation 8 completed [place] [facility] 02/06/2017 15:36:57 Hep A, ped/adol, 2 dose 0 completed [place] [facility] 02/06/2017 15:37:06 Hep A, ped/adol, 2 dose 1 completed Isabel Schreiber[place] [facility] 11/14/2023 11:58:00 Hep B, adolescent or pediatric 7 completed [place] [facility] 02/06/2017 15:37:24 Hep B, adolescent or pediatric 7 completed [place] [facility] 02/06/2017 15:37:28 Hep B, adolescent or pediatric 7 completed [place] [facility] 02/06/2017 15:37:34 HPV, quadrivalent 7 completed [place] [facility] 02/06/2017 15:37:56 HPV, quadrivalent 8 completed [place] [facility] 02/06/2017 15:37:59 HPV, quadrivalent 9 completed [place] [facility] 02/06/2017 15:38:03 Novel [id number] 0 completed [place]ousmane [place] [facility] 02/06/2017 15:38:58 MMR 8 completed [place] [facility] 02/06/2017 15:39:11 MMR 2 completed [place] [facility] 02/06/2017 15:39:33 meningococcal MCV4, unspecified formulation 0 completed [place] [facility] 02/06/2017 15:39:49 IPV 7 completed Isabel Schre[place] [facility] 11/14/2023 11:58:00 IPV 7 completed Isabelchetan Schre[place] [facility] 11/14/2023 11:58:00 IPV 7 completed Isabel Schre[place] [facility] 11/14/2023 11:58:00 IPV 2 completed [place] [facility] 02/06/2017 15:40:16 Td (adult) 0 completed [place] [facility] 02/06/2017 15:40:33 Past Encounters Encounter ID Performer Location Encounter Start Date Encounter Closed Date Diagnosis/Indication Diagnosis SNOMED-CT Code Diagnosis ICD10 Code Diagnosis IMO Codes Diagnosis Note [id number] MD Leonarda Kirkland (Peds) [address] [place] [address] 06/08/2015 15:54:17 06/08/2015 17:01:44 Acute asthma [id number] Take prednisone as directed for 5 days. Use albuterol every 4 hours for the next 7 days (use on a set schedule), then go back to using albuterol on an as needed basis for cough and wheezing. Follow up in 2 weeks to re-check for resolution of exacerbati on. If cough, wheezing, or work of breathing worsens before follow up, go to the emergency room for further care. The patient was counselled on smoking cessation, especially given her asthma. The parent(s) verbalized understand ing. She needs to be seen for a MCV4 vaccinatio n, and then transition to adult medicine. [id number] LUIS Mejía_PC Leonarda (Peds) [address] [place] [address] [phone] 0 06/22/2015 16:00:09 06/23/2015 16:27:33 Acute asthma [id number] MD Leonarda Green (Adult Med) [address] [place] [address] [phone] 0 12/26/2016 14:28:22 12/26/2016 15:51:33 Venereal disease screening 940061059 Z11.3 Obesity 335567028 E66.9 Advised 30 minutes of exercise 5 days/week Advised to not drink her calories Advised 3 balanced meals/day with plenty of fruits and vegtables Advised to download [employer] to track her calories RTC 6 weeks for a weight check - goal is 10lbs Tobacco de pendence syndrome 92919260 F17.290 Advised to quit Active or passive immunization 787589936 Z23 Tuberculos is screening 476905459 Z11.1 Asthma 677189199 J45.90 9 History an d physical examination, school 33470655 Z02.0 21YO female here to establish care and for school physical [id number] MD Leonarda Green (Adult Med) [address] [place] [address] [phone] 12/28/2016 15:43:28 12/31/2016 12:26:29 [id number] MD Leonarda Green (Adult Med) [address] [place] [address] [phone] 01/07/2017 14:30:49 01/08/2017 10:00:53 Tuberculosis screening 735592010 Z11.1 [id number] MD Leonarda Green (Adult Med) [address] [place] [address] [phone] 0 01/09/2017 14:26:27 01/09/2017 18:20:51 Active or passive immunization 104222516 Z23 Tuberculos is screening 732078216 Z11.1 Here for TB read: negative [id number] MD Leonarda Green (Adult Med) [address] [place] [address] [phone] 02/06/2017 14:15:50 02/07/2017 09:26:43 Obesity 355587025 E66.9 Advised 30 minutes of exercise 5 days/week Advised to not drink her calories Advised 3 balanced meals/day with plenty of fruits and vegtables Advised to download [employer] to track her calories RTC 6 weeks for a weight check - goal is 10lbs Active or passive immunization 627076407 Z23 Contraception care 57992 5005 Z30.40 Contact clinic when you are on your next period for Nexplanon insertion - ask for Joy [id number] MD Leonarda Green (Peds) [address] [place] [address] [phone] 02/25/2017 16:18:13 02/27/2017 17:06:47 Contraception care 092757120 Z30.40 Nexplanon does not prevent against STDsUse condoms for the next week Subcutaneo us contraceptive implant palpable 169850668 Z30.49 left anterior biceps [id number] DANYELL Vanessa (Adult Med) [address] [place] [address] [phone] 0 05/15/2018 15:19:30 05/19/2018 10:42:10 Upper respiratory infection 97081804 J06.9 c/w allergy meds from Urgent care no sx's of infection Advised to drink plenty of waterAlter juani ibuprofen and tylenol for painRestOT C cough syrup PRN Body mass index 40+ - severely obese 853037299 Z68.42 Advised 30 minutes of exercise 5 days/week Advised to not drink her calories Advised 3 balanced meals/day with plenty of fruits and vegetables Depressive disorder 9392 7189 F32.0 States that it has a lot to do with her sisterAdvi sed to make a counseling appointmen t Active or passive immunization 361390295 Z23 Allergic disposition 609 002644 Z91.09 [id number] SHRADDHA Reddy jayson [address] [place] [address] 06/02/2020 09:00:49 06/03/2020 07:15:57 Viral screening 793126657 Z11.59 D/w pt the current pandemic of COVID-19 and call for social isolation in order to blunt the curve and minimize risk and spread. Encouraged patient and family to take restrictio ns seriously. They have verbalized understand ing of such. Viral syndrome 809823070 B34.9 [id number] MD Angelica Smallamando [address] [place] [address] 06/23/2020 10:48:06 06/24/2020 07:43:09 Exposure to SARS-CoV-2 803189603 Z20.478 [id number] ZANDRA RUIZ (Adult Med) [address] [place] [address] [phone] 0 05/10/2021 08:31:54 05/10/2021 13:06:09 Contraception care 799393811 Z30.40 She currently has the nexplanon in the left upper arm, it is due for it to be removed (placed in 2016) therefore she would like it replaced with a new one.LMP 05/01/2021, that was the first menstrual cycle she had since nexplanon insertion. She is nulliparou s. No concern for STDs today.- new nexplanon ordered, return in 1-2 weeks for replacemen t Screening for malignant neoplasm of cervix 852689943 Z12.4 Has been sexually active in the past, not currently sexually active, no prior pap smears.She is nulliparou s. No concern for STDs today.- RTC for WWE [id number] ZANDRA RUIZ (Adult Med) [address] [place] [address] [phone] 0 05/17/2021 12:16:51 05/18/2021 11:43:18 Removal of subcutaneous contraceptive 494384234 Z30.46 Here today for nexplanon replacemen t- nexplanon removed from left upper arm in office today, patient tolerated procedure well, no complicati ons Insertion of intrauterine contraceptive device 27246999 Z30.430 Here today for nexplanon replacemen Rosalva test: negative- nexplanon inserted in the left upper arm in office today, patient tolerated procedure well, no complicati ons- aware to use back up control for the next 7 days- try to keep dressing applied to arm for the next 24 hours and steri-stri ps for the next 48 hours [id number] ZANDRA RUIZ (Adult Med) [address] [place] [address] [phone] 0 01/04/2023 14:18:16 01/07/2023 14:41:51 Smoker 65787179 F17.200 Smokes 1/2 PPDAdvised patient to quit smoking, discussed risks of continuing and benefits from quitting, patient to reach out for help when interested in quitting Morbid obesity 864678086 E66.01 Advised decreased portion sizes, good food choices, limited eating out or fast food and eliminate soda and juice from diet. Advised physical activity daily and offered encouragem ent to continue with positive changes made so far. Tachycardia 0724474 R00. 0 HR 118 bpm today, admits to being nervousFol lows with PCP elsewhere- keep close eye on HR, if elevated in the future f/u with PCP Removal of subcutaneous contraceptive 557587438 Z30.46 Here today for nexplanon removal. Not interested in starting any other form of control at this time- nexplanon removed from left upper arm in office today, patient tolerated procedure well, no complicati ons- aware fertility will return immediatel y after removal, use condome for protection [id number] MD Leonarda Small (Adult Med) [address] [place] [address] [phone] 0 11/14/2023 11:47:31 11/15/2023 16:13:00 Cyst of left Bartholin's gland duct 2302741481 5414497 N75.0 -Word catheter placed in ER-Patient requesting removal of word catheter as she has noticed little to no drainage-C ontinue taking antibiotic s until course finishedSk in area prepped with Povodine Iodine.Flu id removed form word catheter to deflate balloonSma jenny Bean forceps used to grasp and remove catheterPr essed for any drainage, no drainage presentDre ssing appliedPat ient to seek emergency care if symptoms worsen, signs of infectionF ollow up with gynecologi st as soon as possible Body mass index 40+ - severely obese 213086049 Z68.41 44.4 Depression screening 171 789506 Z13.31 PHQ9- negative Mental hea lt screening 170812587 Z13.39 GAD7- negative Health Concerns Section Related Observation LastModified by Organization Detai ls LastModified Time None Recorded Concern Status LastModified by Organization Details LastModified Time None Recorded Advance Directives Directive N: Payers Insurance Date Sequence Insurance Name Policy Number Policy Stokes Covered Member ID Stokes Member ID Guarantor Name 11/13/2023 1 [facility] ON OR AFTER 05/11/21 (MEDICAID REPLACEMENT - HMO) [employer] Sample Grinder [id number] Filomena Sample Grinder 05/18/2021 1 [facility] - DOS PRIOR TO 2021 (MEDICAID REPLACEMENT - HMO) [place] Sample Grinder [id number] Filomena Osmin 05/01/2021 2 [place] [facility] Aurora Osmin [id number] Filomena Osmin 05/01/2021 2 [facility] PRIOR TO 05/11/2021 (MEDICAID REPLACEMENT - HMO) [employer] Sample Grinder [id number] Filomena Sample Grinder 04/12/2020 1 [place] [id number] James Osmin [id number] Filomena Osmin 05/01/2021 1 [facility] (MEDICAID HMO) Aurora Osmin [id number] Filomena Sample Grinder Notes Date Note Type Note Provider Name and Address Organization Details Recorded Time 06/23/2020 text/html COVID ScreeningReported by PatientHPIFor associated symptoms, patient reportscoughbut reportsno shortness of breath. For onset/duration of fever, patient reportsno fever. COVID-19 Symptoms March 2020Reported by PatientUpper Respiratory SymptomsFor associated symptoms, patient reportsnauseabut reportsno sputum production,no wheezing,no runny nose,no vomiting,no diarrhea,no body aches,no change in mental status,no hypotension, andno tachycardia. For covid-19 signs and symptoms, patient reportscough resolved,fever resolved,shortness of breath resolved,chills resolved,repeated shaking with chills resolved,muscle pain resolved,headache resolved,sore throat resolved,loss of taste or smell resolved,vomiting or diarrhea resolved,fatigue resolved, andanorexia resolved. For contacts and exposure, patient reportspatient is healthcare personnel.ROS as noted in the HPI 25 yo female ,spoke via phone with C/O, . 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 WILFRIDO COLE NP Attn: Accounting,[address] [place], [address], [facility] 06/23/2020 13:11:15 05/10/2021 text/html ROS as noted in the HPI 26 year old female presents today to establish OBGYN care and to discuss contraception. She currently has the nexplanon in the left upper arm, it is due for it to be removed (placed in 2016) therefore she would like it replaced with a new one. LMP 05/01/2021, that was the first menstrual cycle she had since nexplanon insertion. Has been sexually active in the past, not currently sexually active, no prior pap smears. She is nulliparous. No concern for STDs today. Denies fever, chills, nausea, vomiting, headaches, chest pain, SOB, abdominal pain, diarrhea, constipation, or dysuria. ZANDRA RUIZ Attn: Accounting,[address] [place], [address], [facility] 05/10/2021 09:04:27 05/17/2021 text/html ROS as noted in the HPI 26 year old female presents today for nexplanon replacement. She currently has the nexplanon in the left upper arm, it is due for it to be removed (placed in 2016) therefore she would like it replaced with a new one. LMP 05/01/2021, that was the first menstrual cycle she had since nexplanon insertion. Has been sexually active in the past, not currently sexually active, no prior pap smears. She is nulliparous. No concern for STDs today. Denies fever, chills, nausea, vomiting, headaches, chest pain, SOB, abdominal pain, diarrhea, constipation, or dysuria. ZANDRA RUIZ Attn: Accounting,[address] [facility], [place], [address], [facility] 05/17/2021 13:47:07 01/04/2023 text/html ROS as noted in the HPI 27 year old female presents today for nexplanon removal. She currently has the nexplanon in the left upper arm, it is not quite due to be removed but she is ready to take out and go without for awhile. She has had this type of control for the last 5 years and not had a period since starting the nexplanon. Not interested in any other form of control at this time. Denies fever, chills, nausea, vomiting, headaches, chest pain, SOB, abdominal pain, diarrhea, constipation, or dysuria. ZANDRA RUIZ Attn: Accounting,[address] [facility], [place], [address], [facility] 01/04/2023 14:55:59 11/14/2023 text/html 28-year-old female here for f/u after ER visit. Patient went to [facility] on 11/10/23 for cyst in her vaginal area. Pt states she was diagnosed with Barthalin's cyst and that it was drained in the ER and packed. Was told to f/u with EQUIPMENT MAINTENANCE SUPERVISOR in 4 days to get packing removed. Pt sees Dr. Ortiz but she is out of the office at the moment. Pt states the packing is still draining some but not consistently. Denies any fevers. GEORGE RICO PA-C Attn: Accounting,[address] [facility], [place], [address], [facility] 11/14/2023 12:42:14 OBGyn Episode No OBEpisode recorded.
--- OUTSIDE RECORDS SUMMARY | 2025-10-04 20:16 | XMS_ITS | Clinical Summary ---
Author Organization [facility] Address [address] [place] [address] Care Team Providers Care Turkish Rubber Name Role Phone Edithkyleekarin Teeteeedwin Renteria APRN-RESEARCH DIRECTOR Primary Care Provider + Source Comments [facility],non-owned Affiliates and Associated Physician Practices is amultiple site organization consisting of ambulatory clinics and hospital sitesin [place] and [place]. This disclosure is being madepursuant to the Care Everywhere program and may not contain all information available regarding this patient. Last updated 18.[facility] [employer] Allergies Active Allergy Reactions Criticality Noted Date Comments Bactrim 08/21/2010 Medications * Be aware that medications may not be up to date on this document. Alwaysverify current medications with the patient. etonogestrel (NEXPLANON) 68 MG implant 68 mg by Subdermal route as directed Active albuterol HFA (PROVENTIL;VENT CORRY;PROAIR) 108 (90 BASE) MCG/ACT inhaler Inhale 2 puffs by mouth every 6 hours as needed Active cetirizine (ZYRTEC) 10 MG tabletIndicatio ns:Bilateral acute serous otitis media, recurrence not specified Take 1 tablet by mouth once daily 30 tablet 8 Active fluticasone propionate (FLONASE) 50 MCG/ACT nasal sprayIndication s:Bilateral acute serous otitis media, recurrence not specified [place] 2 sprays into each nostril once daily 1 bottles 8 Active Active Problems Problem Noted Date Diagnosed Date Skin tag 06/19/2011 History of urinary tract infection 02/07/2010 Overview (08/11/2015): Resolved Problems Problem Noted Date Diagnosed Date Resolved Date Urinary tract infection 02/07/201009/12 Overview (09/18/2015): Family History Relation Name Status Comments Mother Alive Social History Tobacco Use Types Packs/Day Years Used Date Smoking Tobacco: Never Smokeless Tobacco: Never Comments No Sex and Gender Information Value Date Recorded Sex Assigned at Not on file 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 Gender Identity Not on file Sexual Orientation Not on file Last Filed Vital Signs Vital Sign Reading Time Taken Comments Blood Pressure 114/82 05/14/2018 12:50 PM CDT Pulse 104 05/14/2018 12:50 PM CDT Temperature 36.8 C (98.2 F) 05/14/2018 12:50 PM CDT Respiratory Rate 16 05/14/2018 12:50 PM CDT Oxygen Saturation 97% 05/14/2018 12:50 PM CDT Inhaled Oxygen Concentration 100% 07/01/2014 1 :15 PM CDT Weight 127 kg (280 lb) 05/14/2018 12:50 PM CDT Height 172.7 cm (5' 8) 05/14/2018 12:50 PM CDT Body Mass Index 42.57 05/14/2018 12:50 PM CDT Plan of Treatment Health Maintenance Due Date Last Done Comments HIV SCREENING 01/27/2012 DTAP/TDAP/TD VACCINES (1 - Tdap) 01/27/2016 HEPATITIS B VACCINE (1 of 3 - 19+ 3-dose series) 01/27/2016 HPV VACCINE (1 - 3-dose SCDM series) 01/27/2024 DEPRESSION SCREENING 11/11/2024 COVID-19 VACCINE (1 - 2024-2 6 season) 2025 INFLUENZA VACCINE (#1) 2025 ZOSTER VACCINE (1 of 2) 2047 HEPATITIS C SCREENING Completed 06/17/2014 HIB VACCINE Aged Out No longer eligi ble based on patient's age to complete this topic MENINGOCOCCAL (Group B) VACC INE SHARED DECISION-MAKING Aged Out No longer eligibl e based on patient's age to complete this topic MENINGOCOCCAL GROUPS A/C/Y/W VACCINE Aged Out No longer eligible b ased on patient's age to complete this topic PNEUMOCOCCAL VACCINE Aged Out No long er eligible based on patient's age to complete this topic Procedures Procedure Name Priority Date/Time Associated Diagnosis Comments HEPATITIS SCREEN ACUTE Routine 06/17/2014 4:25 PM CDT Liver disorder from Last 3 Months or Most Recently Relevant to Health Maintenance Results * HEPATITIS SCREEN ACUTE (06/17/2014 4:25 PM CDT) HAV Antibody IgM Non Reactive Non Reactive 06/18/2014 10:11 AM CDT [facility] HBsAg Non Reactive Non Reactive 06/18/2014 10:11 AM CDT [facility] HBsAb Non Reactive Non Reactive 06/18/2014 10:11 AM CDT [facility] HBc Antibody IgM Non Reactive Non Reactive 06/18/2014 10:11 AM CDT [facility] HCV Antibody Screen Non Reactive Non Reactive 06/18/2014 10:11 AM CDT [facility] Blood BLOOD SPECIMEN / Unknown Lab Venipuncture / Unknown 06/17/2014 4:25 PM CDT 06/17/2014 4:41 PM CDT Narrative [facility] - 06/18/2014 10:11 AM CDT Nonreactive - Antibodies to HCV were not detected, result does not exclude early acute HCV infection. Jonathan Finn MD LAB - CHEMISTRY ORDERABLES Final Result Performing Organization Address City/State/[facility] Co de Phone Number [facility] [address] [place] [address] from Last 3 Months or Most Recently Relevant to Health Maintenance [place] [address] [place] [address] [employer] PLAN [facility] [place]ICA[facility] - [place] Care Teams Turkish Rubber Relationship Specialty Start Date End Date Teetee Vasques, RADIO SALES ACCOUNT EXECUTIVE-RESEARCH DIRECTOR [address] [place] [address] PCP - General 03/08/10
--- OUTSIDE RECORDS SUMMARY | 2025-10-04 20:16 | XMS_ITS | Data Portability ---
Author Organization [place] [facility], Main Office Address [address] [place] [address] Assessment No assessment recorded. Plan of Treatment Reminders Order Date Submit Date Provider Last Modified By Organization Details Last Modified Time Details Appointments Any 15 2024 08:45A Francie gaona MD Not available Not available Not available Lab CBC w/ auto diff 2023 024 [facility] - Outpatient Lab, [address] [place], [address], 12/28/2024 08:14:40 lipid panel, blood 2023 024 [facility], [address] [place], [address], 06/30/2024 18:15:27 CMP, serum or plasma 2023 024 [facility], [address] [place], [address], 03/24/2024 19:42:26 CBC w/ auto diff 2023 024 [facility], [address] [place], [address], 03/24/2024 18:17:35 lipid panel, serum 2023 024 [facility] Lab, [address] [place], [address], 03/24/2024 19:42:32 TSH + free T4, serum [address] Outpatient Lab, [address] [place], [address], 09/08/2024 08:42:32 vitamin D, 25-hydrox y, total, serum [address] Outpatient Lab, [address] [place], [address], 09/08/2024 08:42:32 gamma-glu tamyl transfera se (ggt), serum 2023 024 [facility], [address] [place], [address], 03/24/2024 19:41:50 hepatitis panel (A+B+C), acute, serum 2023 024 [facility], [address] [place], [address], 03/24/2024 19:36:21 vitamin B12 + folate, serum or blood [address] Outpatient Lab, [address] [place], [address], 09/08/2024 08:42:32 pap, IG + CT/NG + reflex HR HPV 2022 023 [email or web address] [facility] (Lab), [address] [place], [address], 02/19/2023 08:10:11 Referral pulmonolo gist referral - Needs asthma assessmen t and action plan. I will order PFT. 2023 024 aakash Cox OFFICE ASSISTANT, [address] [facility], [facility] [address], [address], 01/25/2025 08:29:30 obstetric jonnie and gynecolog ist referral 2023 024 [email or web address] Jessika Houser, [address], [place], [address], Ph [phone] 10/06/2024 08:36:01 Procedures None recorded. Surgeries None recorded. Imaging PFT, complete - NPAN [id number] per ins co, ref #rhodat 2023 024 [email or web address] 2 [facility] ([facility]), [address] [place], [address], 03/16/2025 08:29:16 US, liver 2023 024 [email or web address] 5 [facility] ([facility]), [address] [place], [address], 03/19/2024 09:01:30 Medication Orders bupropion HCl XL 300 mg 24 hr tablet, extended release 2023 024 [facility][id number], [address] [place], [id number], 06/30/2024 16:29:21 bupropion HCl XL 300 mg 24 hr tablet, extended release 2023 024 [facility] #[id number], [address] [place], [id number], 03/05/2024 17:12:43 albuterol sulfate HFA 90 mcg/actua tion aerosol inhaler 2023 024 [facility] #[id number], [address], [place], [place], [id number], 03/05/2024 17:12:40 bupropion HCl XL 300 mg 24 hr tablet, extended release 2022 023 [facility] #[id number], [address] [place], [id number], 02/12/2023 17:01:49 Patient TargetsNo targets recorded. 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 I will order PFT. Referring Physician: Makayla Casillas, Internal Medicine, Encounter Date: 06/30/2024 Results Created Date Observation Date Name Description Value Unit Range Abnormal Flag Note LastModifiedBy Organization Detail LastModifiedTime 06/07/2006/07/2021 CULTU RE URINE urc ===== ===== ===== ===== ===== ===== ===== ===== ===== ===== ===== ===== ===== ===== ===== ===== ===== ===== ===== ===== ===== ===== ===== ===== CULTU RE NO.: [id number] Exam Statu s: Final Exam Type: CULTU RE URINE ===== ===== ===== ===== ===== ===== ===== ===== ===== ===== ===== ===== ===== ===== ===== ===== ===== ===== ===== ===== ===== ===== ===== ===== Cultu re Repor t: Organ ism #01 Esche betty a coli (escc ol) Antib iotic s escco l Achie vable Achie vable (01) Dosag e Serum Level Urine Level mcg/m l mcg/m l Amika susanna <=2 S 000A Ampic illin >=32 R 000A Ampic illin /Sulb actam >=32 R 000A Cefaz erik 8 S 000A Cefep isamar <=1 S 000A Cefox itin 32 R 000A Ceftr iaxon e <=1 S 000A Cipro floxa susanna >=4 R 000A ESBL NEG - 000A Genta micin <=1 S 000A Levof loxac in >=8 R 000A Merop enem <=0.2 5 S 000A Piper acill in/[place] lbact <=4 S 000A Tobra mycin <=1 S 000A Trime thopr im/[place] lfame >=320 R 000A Cefta zidim e/Bin bacta <=1 S 000A Nitro furan toin <=16 S 000A Not Available [facility] (Lab) [address] [place], [address], 06/10/2021 07:31:17 06/07/20 21 06/07/2021 urina lysis , dipst ick Leukocytes (reference range: negative cynthia/ l) Negati ve Not Available [address] [facility] [address], [place], [address], 06/07/2021 15:15:25 06/07/20 21 06/07/2021 urina lysis , dipst ick Nitrite (reference rage: negative mg/dl) negati ve Not Available [address], [place], [address], 06/07/2021 15:15:25 06/07/20 21 06/07/2021 urina lysis , dipst ick Urobilinogen (reference range: 0.2-1 mg/dl) 0.2 Not Available [address] , [address], [place], [address], 06/07/2021 15:15:25 06/07/20 21 06/07/2021 urina lysis , dipst ick Protein (reference range: negative mg/dl) Negati ve Not Available [address] , [address], [place], [address], 06/07/2021 15:15:25 06/07/20 21 06/07/2021 urina lysis , dipst ick pH (reference range: 5-7) 6.0 Not Available [address] , [address], [place], [address], 06/07/2021 15:15:25 06/07/20 21 06/07/2021 urina lysis , dipst ick Blood (reference range: negative Ervin/ l) Negati ve Not Available [address] , [address], [place], [address], 06/07/2021 15:15:25 06/07/20 21 06/07/2021 urina lysis , dipst ick Specific [place] (reference range: 1.005-1.030) 1.000 Not Available [address] , [address], [place], [address], 06/07/2021 15:15:25 06/07/20 21 06/07/2021 urina lysis , dipst ick Ketone (reference range: negative mg/dl) Negati ve Not Available [address] , [address], [place], [address], 06/07/2021 15:15:25 06/07/20 21 06/07/2021 urina lysis , dipst ick Bilirubin (reference range: negative mg/dl) Negati ve Not Available [address] , [address], [place], [address], 06/07/2021 15:15:25 06/07/20 21 06/07/2021 urina lysis , dipst ick Glucose (reference range: negative mg/dl) Negati ve Not Available [address] , [address], [place], [address], 06/07/2021 15:15:25 06/07/20 21 06/07/2021 urina lysis , dipst ick Appearance Clear Not Available [address] , [address], [place], [address], 06/07/2021 15:15:25 06/07/20 21 06/07/2021 urina lysis , dipst ick Color Yellow Not Available [address] , [address], [place], [address], 06/07/2021 15:15:25 03/24/20 24 03/24/2024 CBC/C OMPLE TE BLD COUNT W/DIF F white blood cells 11.2 x10'3 /uL 4.2-10 .8 high Not Available [facility] (Lab) [address] [place], [address], 03/24/2024 18:17:34 03/24/20 24 03/24/2024 CBC/C OMPLE TE BLD COUNT W/DIF F red blood cells 4.40 x10'6 /uL 3.80-5 .20 Not Available [facility] (Lab) [address] [place], [address], 03/24/2024 18:17:34 03/24/20 24 03/24/2024 CBC/C OMPLE TE BLD COUNT W/DIF F hemoglobin 13.7 g/dL 12.0-1 5.6 Not Available [facility] (Lab) [address] [place], [address], 03/24/2024 18:17:34 03/24/20 24 03/24/2024 CBC/C OMPLE TE BLD COUNT W/DIF F hematocrit 41.1 % 35.7-4 5.7 Not Available [facility] (Lab) [address] [facility] [place], [address], 03/24/2024 18:17:34 03/24/20 24 03/24/2024 CBC/C OMPLE TE BLD COUNT W/DIF F mean red cell volume 93.4 fL 82.0-9 9.0 Not Available [facility] (Lab) [address] [place], [address], 03/24/2024 18:17:34 03/24/20 24 03/24/2024 CBC/C OMPLE TE BLD COUNT W/DIF F mean red cell hemoglobin 31.1 pg 27.0-3 3.0 Not Available [facility] (Lab) [address] [place], [address], 03/24/2024 18:17:34 03/24/20 24 03/24/2024 CBC/C OMPLE TE BLD COUNT W/DIF F mean RBC HGB concentratio n 33.3 g/dL 31.0-3 6.0 Not Available [facility] (Lab) [address] [place], [address], 03/24/2024 18:17:34 03/24/20 24 03/24/2024 CBC/C OMPLE TE BLD COUNT W/DIF F red cell distribution width 13.0 % 11.8-1 5.5 Not Available [facility] (Lab) [address] [place], [address], 03/24/2024 18:17:34 03/24/20 24 03/24/2024 CBC/C OMPLE TE BLD COUNT W/DIF F platelets 384 x10'3 /uL 150-40 0 Not Available [facility] (Lab) [address] [place], [address], 03/24/2024 18:17:34 03/24/20 24 03/24/2024 CBC/C OMPLE TE BLD COUNT W/DIF F mean platelet volume 10.7 fL 9.0-12 .4 Not Available [facility] (Lab) [address] [place], [address], 03/24/2024 18:17:34 03/24/20 24 03/24/2024 CBC/C OMPLE TE BLD COUNT W/DIF F neutrophils 68.5 % 39.0-7 2.0 Not Available [facility] (Lab) [address] [place], [address], 03/24/2024 18:17:34 03/24/20 24 03/24/2024 CBC/C OMPLE TE BLD COUNT W/DIF F lymphocytes 23.6 % 16.0-4 7.0 Not Available [facility] (Lab) [address] [place], [address], 03/24/2024 18:17:34 03/24/20 24 03/24/2024 CBC/C OMPLE TE BLD COUNT W/DIF F monocytes 5.8 % 5.0-12 .0 Not Available [facility] (Lab) [address] [place], [address], 03/24/2024 18:17:34 03/24/20 24 03/24/2024 CBC/C OMPLE TE BLD COUNT W/DIF F eosinophils 1.3 % 1.0-7. 0 Not Available [facility] (Lab) [address] [place], [address], 03/24/2024 18:17:34 03/24/20 24 03/24/2024 CBC/C OMPLE TE BLD COUNT W/DIF F basophils 0.4 % 0.0-2. 0 Not Available [facility] (Lab) [address] [place], [address], 03/24/2024 18:17:34 03/24/20 24 03/24/2024 CBC/C OMPLE TE BLD COUNT W/DIF F immature granulocytes 0.4 % 0.00-0 .50 Not Available [facility] (Lab) [address] [place], [address], 03/24/2024 18:17:34 03/24/20 24 03/24/2024 CBC/C OMPLE TE BLD COUNT W/DIF F neutrophils, absolute count 7.68 x10'3 /uL 1.5-8. 0 Not Available [facility] (Lab) [address] [place], [address], 03/24/2024 18:17:34 03/24/20 24 03/24/2024 CBC/C OMPLE TE BLD COUNT W/DIF F lymphocytes, absolute count 2.65 x10'3 /uL 1.07-3 .43 Not Available [facility] (Lab) [address] [place], [address], 03/24/2024 18:17:34 03/24/20 24 03/24/2024 CBC/C OMPLE TE BLD COUNT W/DIF F monocytes, absolute count 0.65 x10'3 /uL 0.29-0 .99 Not Available [facility] (Lab) [address] [place], [address], 03/24/2024 18:17:34 03/24/20 24 03/24/2024 CBC/C OMPLE TE BLD COUNT W/DIF F eosinophils, absolute count 0.15 x10'3 /uL 0.02-0 .53 Not Available [facility] (Lab) [address] [place], [address], 03/24/2024 18:17:34 03/24/20 24 03/24/2024 CBC/C OMPLE TE BLD COUNT W/DIF F basophils, absolute count 0.04 x10'3 /uL 0.01-0 .08 Not Available [facility] (Lab) [address] [place], [address], 03/24/2024 18:17:34 03/24/20 24 03/24/2024 CBC/C OMPLE TE BLD COUNT W/DIF F immature granulocytes ,absolute 0.04 x10'3 /uL 0.00-0 .05 Not Available [facility] (Lab) [address] [place], [address], 03/24/2024 18:17:34 03/24/20 24 03/24/2024 CBC/C OMPLE TE BLD COUNT W/DIF F nucleated red blood cells 0.0 % -0 Not Available [facility] (Lab) [address] [place], [address], 03/24/2024 18:17:34 03/24/20 24 03/24/2024 CBC/C OMPLE TE BLD COUNT W/DIF F NRBC# 0.00 x10'3 /uL Not Available [facility] (Lab) [address] [place], [address], 03/24/2024 18:17:34 03/24/20 24 03/24/2024 VITAM IN D 25-HY DROXY vd25oh 41.6 NG/mL 30-100 Vitam in D Statu s: Defic ient: <20 ng/mL Insuf ficie nt: 20-29 ng/mL Suffi cient : 30-10 0 ng/mL Not Available [facility] (Lab) [address] [place], [address], 03/24/2024 19:30:01 05/14/20 24 03/24/2024 HEPAT ITIS ACUTE PANEL hepatitis A IgM antibody NON-RE ACTIVE non-re active For sampl es repor jame as Borde rline React randolph for HAV IgM, it is recom gabe d a new speci men be obtai bryon in 2 weeks and retes jame. Not Available [facility] (Lab) [address] [place], [address], 03/24/2024 19:52:34 03/24/20 24 03/24/2024 HEPAT ITIS ACUTE PANEL hepatitis A virus signal/cutof 0.02 0.00-0 .79 Not Available [facility] (Lab) [address] [place], [address], 03/24/2024 19:52:34 03/24/20 24 03/24/2024 HEPAT ITIS ACUTE PANEL hepatitis B core IgM antibody NON-RE ACTIVE non-re active Not Available [facility] (Lab) [address] [place], [address], 03/24/2024 19:52:34 03/24/20 24 03/24/2024 HEPAT ITIS ACUTE PANEL HBV core IgM signal/cutof f 0.04 0.00-1 .10 Not Available [facility] (Lab) [address] [place], [address], 03/24/2024 19:52:34 03/24/20 24 03/24/2024 HEPAT ITIS ACUTE PANEL hepatitis B surface antigen NON-RE ACTIVE non-re active All speci mens react randolph for Hepat itis B Surfa ce Antig en will refle x to refer [facility] lab confi rmato ry testi ng. Not Available [facility] (Lab) [address] [place], [address], 03/24/2024 19:52:34 03/24/20 24 03/24/2024 HEPAT ITIS ACUTE PANEL HBV surf.antigen signal/cutof f 0.08 0.00-0 .99 Not Available [facility] (Lab) [address] [place], [address], 03/24/2024 19:52:34 03/24/20 24 03/24/2024 HEPAT ITIS ACUTE PANEL hepatitis C antibody NON-RE ACTIVE non-re active All speci mens react randolph for Hepat itis C Virus antib bella will refle x to PCR confi rmato ry testi ng. Pleas e allow 48-72 hours for resul ts. Not Available [facility] (Lab) [address] [place], [address], 03/24/2024 19:52:34 03/24/20 24 03/24/2024 HEPAT ITIS ACUTE PANEL hepatitis C virus signal/cutof 0.01 0.00-0 .99 Not Available [facility] (Lab) [address] [place], [address], 03/24/2024 19:52:34 03/24/20 24 03/24/2024 GGT/G -GLUT AMYL TRANS FERAS E gamma-glutam yl transferase 25 U/L 12-43 Not Available [facility] (Lab) [address] [place], [address], 03/24/2024 19:41:50 03/24/20 24 03/24/2024 COMPR EHENS RANDOLPH METAB OLIC PANEL sodium 136 mmol/ L 137-14 5 low Not Available [facility] (Lab) [address] [place], [address], 03/24/2024 19:42:26 03/24/20 24 03/24/2024 COMPR EHENS RANDOLPH METAB OLIC PANEL potassium 4.0 mmol/ L 3.5-5. 1 Not Available [facility] (Lab) [address] [place], [address], 03/24/2024 19:42:26 03/24/20 24 03/24/2024 COMPR EHENS RANDOLPH METAB OLIC PANEL chloride 106 mmol/ L 98-107 Not Available [facility] (Lab) [address] [place], [address], 03/24/2024 19:42:26 03/24/20 24 03/24/2024 COMPR EHENS RANDOLPH METAB OLIC PANEL carbon dioxide 21 mmol/ L 22-30 low Not Available [facility] (Lab) [address] [place], [address], 03/24/2024 19:42:26 03/24/20 24 03/24/2024 COMPR EHENS RANDOLPH METAB OLIC PANEL anion gap 13.0 mmol/ L 14-22 low Not Available [facility] (Lab) [address] [place], [address], 03/24/2024 19:42:26 03/24/20 24 03/24/2024 COMPR EHENS RANDOLPH METAB OLIC PANEL glucose 97 mg/dL 70-99 Not Available [facility] (Lab) [address] [place], [address], 03/24/2024 19:42:26 03/24/20 24 03/24/2024 COMPR EHENS RANDOLPH METAB OLIC PANEL BUN 15 mg/dL 8-19 Not Available [facility] (Lab) [address] [place], [address], 03/24/2024 19:42:26 03/24/20 24 03/24/2024 COMPR EHENS RANDOLPH METAB OLIC PANEL creatinine 0.74 mg/dL 0.66-1 .25 Not Available [facility] (Lab) [address] [place], [address], 03/24/2024 19:42:26 03/24/20 24 03/24/2024 COMPR EHENS RANDOLPH METAB OLIC PANEL GFR >60 Refer ence Range : [place] ge GFR Healt hy Adult : >60 mL/mi n/1.7 3 m2 Chron ic Kidne y Disea se: 15-60 mL/mi n/1.7 3 m2 Kidne y Failu re: <15/m L/min /1.73 m2 www.n iddk. nih.g ov The MDRD study equat ion has not been valid ated in child lv <18 years of age; pregn ant women ; the elder ly >85 years of age; or in some racia l or ethni c subgr oups, such as Hispa nics. Outsi de the valid ated georgette eters , estim ated GFR is less accur ate, requi ring clini aretha judgm ent on a case- by-ca se basis . Clini aretha inter preta tion for other races and ages must be made by the clini julia. The MDRD study equat ion has not been valid ated for the evalu ation of serum creat inine relat ed to nutri gina l statu s or medic ation usage . For perso ns <18 years of age, a pedia tric GFR calcu lator is avail able on the [facility] websi te: https :[email or web address] briceño.demetrice rg/pr ofess ional s/kdo qi/gf r_cal culat or Not Available [facility] (Lab) [address] [place], [address], 03/24/2024 19:42:26 03/24/20 24 03/24/2024 COMPR EHENS RANDOLPH METAB OLIC PANEL alkaline phosphatase 60 U/L 38-126 Not Available [facility] (Lab) [address] [place], [address], 03/24/2024 19:42:26 03/24/20 24 03/24/2024 COMPR EHENS RANDOLPH METAB OLIC PANEL alanine aminotransfe rase 24 U/L 0-35 Not Available [facility] (Lab) [address] [place], [address], 03/24/2024 19:42:26 03/24/20 24 03/24/2024 COMPR EHENS RANDOLPH METAB OLIC PANEL aspartate aminotransfe rase 25 U/L 15-37 Not Available [facility] (Lab) [address] [place], [address], 03/24/2024 19:42:26 03/24/20 24 03/24/2024 COMPR EHENS RANDOLPH METAB OLIC PANEL bilirubin, total 0.50 mg/dL 0.20-1 .30 Not Available [facility] (Lab) [address] [place], [address], 03/24/2024 19:42:26 03/24/20 24 03/24/2024 COMPR EHENS RANDOLPH METAB OLIC PANEL calcium 9.4 mg/dL 8.4-10 .2 Not Available [facility] (Lab) [address] [place], [address], 03/24/2024 19:42:26 03/24/20 24 03/24/2024 COMPR EHENS RANDOLPH METAB OLIC PANEL total protein 6.4 g/dL 6.3-8. 2 Not Available [facility] (Lab) [address] [place], [address], 03/24/2024 19:42:26 03/24/20 24 03/24/2024 COMPR EHENS RANDOLPH METAB OLIC PANEL albumin 3.9 g/dL 3.4-5. 0 Not Available [facility] (Lab) [address] [place], [address], 03/24/2024 19:42:26 03/24/20 24 03/24/2024 COMPR EHENS RANDOLPH METAB OLIC PANEL globulin 2.5 g/dL 2.6-4. 2 low Not Available [facility] (Lab) [address] [place], [address], 03/24/2024 19:42:26 03/24/20 24 03/24/2024 COMPR EHENS RANDOLPH METAB OLIC PANEL A/G ratio 1.6 ratio 1.0-2. 0 Not Available [facility] (Lab) [address] [place], [address], 03/24/2024 19:42:26 03/24/20 24 03/24/2024 LIPID PANEL cholesterol 175 mg/dL 140-19 9 NIH YAZAN NSUS RECOM MENDA TION FOR NAHED STERO L: ADULT CHILD LOW RISK: <200 <170 BORDE RLINE : <200- 239 ----- HIGH RISK: >240 >200 Not Available [facility] (Lab) [address] [place], [address], 03/24/2024 19:42:31 03/24/20 24 03/24/2024 LIPID PANEL triglyceride s 151 mg/dL 0-150 high NIH YAZAN NSUS REPOR T RECOM MENDA TION FOR TRIGL YCERI JENNIFER: ADULT CHILD LOW RISK: <150 ----- BODER LINE: 150-1 99 ----- HIGH RISK: >200 ----- Not Available [facility] (Lab) [address] [place], [address], 03/24/2024 19:42:31 03/24/20 24 03/24/2024 LIPID PANEL HDL cholesterol 43 mg/dL 40- Not Available [facility] (Lab) [address] [place], [address], 03/24/2024 19:42:31 03/24/20 24 03/24/2024 LIPID PANEL LDL cholesterol, calculated 102 mg/dL 0-130 NIH YAZAN NSUS REPOR T RECOM MENDA TIONS FOR LDL: ADULT CHILD LOW RISK <130 <110 (OPTI MAL LDL) <100 ----- BORDE RLINE : 130-1 59 ----- HIGH RISK: >160 >130 A TRIGL YCERI DE RESUL T >400 INVAL IDATE S THE CALCU LATIO N FOR LDL FRACT IONAT ION - THE LDL RESUL T WILL NOT BE REPOR JAME. Not Available [facility] (Lab) [address] [place], [address], 03/24/2024 19:42:31 03/24/20 24 03/24/2024 VITAM IN B12 (HARVINDER ELISEO ) vb12 301 pg/mL 239-93 1 Not Available [facility] (Lab) [address] [place], [address], 03/24/2024 20:20:58 03/24/20 24 03/24/2024 FOLAT E, SERUM /PLAS MA folate 13.0 NG/mL 2.76-2 0.0 Not Available [facility] (Lab) [address] [place], [address], 03/24/2024 20:21:03 03/24/20 24 03/24/2024 T4 FREE free T4 0.82 NG/dL 0.78-2 .19 Not Available [facility] (Lab) [address] [place], [address], 03/24/2024 20:21:08 03/24/20 24 03/24/2024 TSH thyroid-stim ulating hormone 1.000 uIU/m L 0.465- 4.680 Not Available [facility] (Lab) [address] [place], [address], 03/24/2024 20:22:14 04/08/20 24 04/08/2024 CBC/C OMPLE TE BLD COUNT W/DIF F white blood cells 12.0 x10'3 /uL 4.2-10 .8 high Not Available [facility] (Lab) [address] [place], [address], 04/08/2024 18:46:18 04/08/20 24 04/08/2024 CBC/C OMPLE TE BLD COUNT W/DIF F red blood cells 4.44 x10'6 /uL 3.80-5 .20 Not Available [facility] (Lab) [address] [place], [address], 04/08/2024 18:46:18 04/08/20 24 04/08/2024 CBC/C OMPLE TE BLD COUNT W/DIF F hemoglobin 13.6 g/dL 12.0-1 5.6 Not Available [facility] (Lab) [address] [place], [address], 04/08/2024 18:46:18 04/08/20 24 04/08/2024 CBC/C OMPLE TE BLD COUNT W/DIF F hematocrit 41.1 % 35.7-4 5.7 Not Available [facility] (Lab) [address] [place], [address], 04/08/2024 18:46:18 04/08/20 24 04/08/2024 CBC/C OMPLE TE BLD COUNT W/DIF F mean red cell volume 92.6 fL 82.0-9 9.0 Not Available [facility] (Lab) [address] [place], [address], 04/08/2024 18:46:18 04/08/20 24 04/08/2024 CBC/C OMPLE TE BLD COUNT W/DIF F mean red cell hemoglobin 30.6 pg 27.0-3 3.0 Not Available [facility] (Lab) [address] [place], [address], 04/08/2024 18:46:18 04/08/20 24 04/08/2024 CBC/C OMPLE TE BLD COUNT W/DIF F mean RBC HGB concentratio n 33.1 g/dL 31.0-3 6.0 Not Available [facility] (Lab) [address] [place], [address], 04/08/2024 18:46:18 04/08/20 24 04/08/2024 CBC/C OMPLE TE BLD COUNT W/DIF F red cell distribution width 13.1 % 11.8-1 5.5 Not Available [facility] (Lab) [address] [place], [address], 04/08/2024 18:46:18 04/08/20 24 04/08/2024 CBC/C OMPLE TE BLD COUNT W/DIF F platelets 351 x10'3 /uL 150-40 0 Not Available [facility] (Lab) [address] [place], [address], 04/08/2024 18:46:18 04/08/20 24 04/08/2024 CBC/C OMPLE TE BLD COUNT W/DIF F mean platelet volume 10.2 fL 9.0-12 .4 Not Available [facility] (Lab) [address] [place], [address], 04/08/2024 18:46:18 04/08/20 24 04/08/2024 CBC/C OMPLE TE BLD COUNT W/DIF F neutrophils 68.1 % 39.0-7 2.0 Not Available [facility] (Lab) [address] [place], [address], 04/08/2024 18:46:18 04/08/20 24 04/08/2024 CBC/C OMPLE TE BLD COUNT W/DIF F lymphocytes 23.2 % 16.0-4 7.0 Not Available [facility] (Lab) [address] [place], [address], 04/08/2024 18:46:18 04/08/20 24 04/08/2024 CBC/C OMPLE TE BLD COUNT W/DIF F monocytes 6.2 % 5.0-12 .0 Not Available [facility] (Lab) [address] [place], [address], 04/08/2024 18:46:18 04/08/20 24 04/08/2024 CBC/C OMPLE TE BLD COUNT W/DIF F eosinophils 1.6 % 1.0-7. 0 Not Available [facility] (Lab) [address] [place], [address], 04/08/2024 18:46:18 04/08/20 24 04/08/2024 CBC/C OMPLE TE BLD COUNT W/DIF F basophils 0.6 % 0.0-2. 0 Not Available [facility] (Lab) [address] [place], [address], 04/08/2024 18:46:18 04/08/20 24 04/08/2024 CBC/C OMPLE TE BLD COUNT W/DIF F immature granulocytes 0.3 % 0.00-0 .50 Not Available [facility] (Lab) [address] [place], [address], 04/08/2024 18:46:18 04/08/20 24 04/08/2024 CBC/C OMPLE TE BLD COUNT W/DIF F neutrophils, absolute count 8.19 x10'3 /uL 1.5-8. 0 high Not Available [facility] (Lab) [address] [place], [address], 04/08/2024 18:46:18 04/08/20 24 04/08/2024 CBC/C OMPLE TE BLD COUNT W/DIF F lymphocytes, absolute count 2.78 x10'3 /uL 1.07-3 .43 Not Available [facility] (Lab) [address] [place], [address], 04/08/2024 18:46:18 04/08/20 24 04/08/2024 CBC/C OMPLE TE BLD COUNT W/DIF F monocytes, absolute count 0.74 x10'3 /uL 0.29-0 .99 Not Available [facility] (Lab) [address] [place], [address], 04/08/2024 18:46:18 04/08/20 24 04/08/2024 CBC/C OMPLE TE BLD COUNT W/DIF F eosinophils, absolute count 0.19 x10'3 /uL 0.02-0 .53 Not Available [facility] (Lab) [address] [place], [address], 04/08/2024 18:46:18 04/08/20 24 04/08/2024 CBC/C OMPLE TE BLD COUNT W/DIF F basophils, absolute count 0.07 x10'3 /uL 0.01-0 .08 Not Available [facility] (Lab) [address] [place], [address], 04/08/2024 18:46:18 04/08/20 24 04/08/2024 CBC/C OMPLE TE BLD COUNT W/DIF F immature granulocytes ,absolute 0.03 x10'3 /uL 0.00-0 .05 Not Available [facility] (Lab) [address] [place], [address], 04/08/2024 18:46:18 04/08/20 24 04/08/2024 CBC/C OMPLE TE BLD COUNT W/DIF F nucleated red blood cells 0.0 % -0 Not Available [facility] (Lab) [address] [place], [address], 04/08/2024 18:46:18 04/08/20 24 04/08/2024 CBC/C OMPLE TE BLD COUNT W/DIF F NRBC# 0.00 x10'3 /uL Not Available [facility] (Lab) [address] [place], [address], 04/08/2024 18:46:18 07/04/20 23 07/04/2023 CT, abdom en + pelvi s, w/ contr ast No observ ation record ed. [place] [address], [place], [address], 07/05/2023 09:04:17 Result Notes None recorded. Problems Name Problem SNOMED Code Status Onset Date Resolution Date Notes Provider Name and Address Organization Details Recorded Time Recurrent urinary tract infection 796460895 Completed Not Available [facility] 3 09:28:09 Retention of urine 027228730 Completed Not Available [facility] 3 09:28:09 Asthma 212315670 Active 2020 Makayla Casillas APRN [address], [place], [address] , [employer] 4 11:21:31 Depressive disorder 58288062 Active 2020 Makayla Casillas APRN [address], [address], [place], [address] , [employer] 4 11:21:37 Anxiety 23876935 Active 2020 Makayla Casillas APRN [address], [address], [place], [address] , [employer] 4 11:21:28 Elevated blood-pres sure reading without diagnosis of hypertensi on 671281461 Active 2022 Jessica Morin MD [address], [address], [place], [address] , [employer] 3 05:49:38 Moderate recurrent major depression 55163554 Active 2023 Makayla Casillas APRN [address], [address], [place], [address] , [employer] 4 11:21:42 Vitamin D deficiency 43831219 Active 2023 Makayla Casillas APRN [address], [address], [place], [address] , [employer] 4 11:21:39 Serum vitamin B12 below reference range 703510676 Active 2023 Juan Manuel valdez MD [address], [address], [place], [address] , [employer] 4 16:22:01 Cigarette smoker 91989442 Active 2023 Makayla Casillas APRN [address], [address], [place], [address] , [employer] 4 11:21:33 Liver enzymes level above reference range 726383368 Active 2023 Juan Manuel valdez MD [address], [address], [place], [address] , [facility] [employer] [facility] [email or web address] [facility] 4 17:16:06 Hyperlipid emia 77721909 Active 2023 Makayla Casillas APRN [address], [address], [place], [address] , [employer] [facility] [employer] [facility] 4 11:21:45 Leukopenia 98868443 Active 2023 Makayla Casillas APRN [address], [place], [address] , [facility] [employer] [facility] [email or web address] [facility] 4 11:21:50 Leukocytos is 000572607 Active 2023 Makayla Casillas APRN [address], [address], [place], [address] , [employer] [facility] [email or web address] [facility] 4 11:21:53 SARS-CoV-2 Active 2023 Makayla Casillas APRN [address], [place], [address] , [employer] [facility] [employer] [facility] 4 12:14:59 Acute sinusitis 47477330 Active 2023 Makayla Casillas APRN [address], [place], [address] , [employer] [facility] [employer] [facility] 4 12:15:46 Problem Notes None recorded. Procedures Surgical History Date Name Laterality Status Provider Name and Address Organization Details Recorded Time Appendectomy completed Not Available [facility] 01/09/2023 09:24:29 Ear Tubes completed Not Available [facility] 0 01/09/2023 09:24:29 Imaging Results None recorded. Procedure Notes None recorded. Medical Equipment None Reported. Allergies Allergen ID Allergen Name Allergen Category Reaction Reaction Severity Criticality Documentation Date Start Date Code Code System Note Provider Name and Address Organization Details Recorded Time 08459 doxycycli ne Not available Not available Not available Not available 01/09/2023 3640 RxNorm Not Available [facility] 3 09:32:30 Medications Name Sig Start Date Stop Date Status Note LastModified by Organization Details LastModified Time amoxicillin 500 mg capsule 05/08 completed Not Available Not Available Not Available prednisone 10 mg tablet TK 5 TS PO D FOR 3 DAYS 4 FOR 3 DAYS 3 FOR 3 DAYS 2 FOR 3 DAYS THEN 1 T D FOR 3 DAYS 05/08 completed Not Available Not Available Not Available clindamycin HCl 300 mg capsule TAKE 2 CAPSULES BY MOUTH THREE TIMES DAILY FOR 10 DAYS 03/05 completed Not Available Not Available Not Available benzonatate 200 mg capsule TAKE 1 CAPSULE BY MOUTH THREE TIMES DAILY active Not Available Not Available No t Available hydrocodone 5 mg-acetamin ophen 325 mg tablet 05/08 completed Not Available Not Available Not Available ondansetron HCl 4 mg tablet TK 1 T PO Q 8 H 05/08 completed Not Available Not Available Not Available prednisone 20 mg tablet TAKE 2 TABLETS BY MOUTH DAILY FOR 3 DAYS active Not Available Not Available No t Available acetaminoph en 300 mg-codeine 30 mg tablet TK 1 T PO Q 4 TO 6 H PRN 05/08 completed Not Available Not Available Not Available ciprofloxac in 500 mg tablet TAKE 1 TABLET BY MOUTH EVERY 12 HOURS FOR 5 DAYS 09/19 completed Not Available Not Available Not Available sulfamethox azole 800 mg-trimetho prim 160 mg tablet 05/08 completed Not Available Not Available Not Available meloxicam 7.5 mg tablet 05/08 completed Not Available Not Available Not Available ofloxacin 0.3 % ear drops INSTILL 10 DROPS TO AFFECTED EAR EVERY 24 HOURS FOR 7 DAYS 02/12 completed Not Available Not Available Not Available amoxicillin 875 mg tablet TAKE 1 TABLET BY MOUTH TWICE DAILY 02/12 completed Not Available Not Available Not Available famotidine 20 mg tablet TK 1 T PO Q 12 H 05/08 completed Not Available Not Available Not Available phenazopyri dine 100 mg tablet TAKE 1 TABLET BY MOUTH THREE TIMES DAILY NEEDED 02/12 completed Not Available Not Available Not Available cephalexin 500 mg capsule TAKE 1 CAPSULE BY MOUTH EVERY 8 HOURS FOR 10 DAYS 03/05 completed Not Available Not Available Not Available methylpredn isolone 4 mg tablets in a dose pack 05/08 completed Not Available Not Available Not Available albuterol sulfate HFA 90 mcg/actuati on aerosol inhaler INHALE 2 PUFFS BY MOUTH EVERY 4 HOURS NEEDED active Not Available Not Available No t Available ondansetron 4 mg disintegrat ing tablet DISSOLVE 1 TABLET ON THE TONGUE EVERY 8 HOURS NEEDED FOR NAUSEA OR VOMITING 03/05 completed Not Available Not Available Not Available naproxen 500 mg tablet TAKE 1 TABLET BY MOUTH TWICE DAILY WITH FOOD active Not Available Not Available No t Available amoxicillin 875 mg-potassiu m clavulanate 125 mg tablet 05/08 completed Not Available Not Available Not Available rosuvastati n 40 mg tablet TAKE 1 TABLET BY MOUTH EVERY DAY 2023 active Not Available Not Available Not Avai lable bupropion HCl XL 300 mg 24 hr tablet, extended release TAKE 1 TABLET BY MOUTH EVERY DAY active Not Available Not Available No t Available bupropion HCl XL 150 mg 24 hr tablet, extended release TAKE 1 TABLET BY MOUTH EVERY DAY 09/19 completed Not Available Not Available Not Available nitrofurant oin monohydrate /macrocryst als 100 mg capsule TAKE 1 CAPSULE BY MOUTH TWICE DAILY 09/19 completed Not Available Not Available Not Available albuterol sulf 90 mcg/actuati on breath activated powder inhaler,sen sor Inhale 2 puffs every 4 hours by inhalatio n route as needed. 02/12 completed Not Available Not Available Not Available Vitals Date Recorded Body height Body mass index (BMI) Body weight Body temperature Heart rate Oxygen saturation Systolic And Diastolic Provider Name and Address Organization Details Last Updated DateTime 3 172.72 cm 48.5 kg/m2 901475. 97 g 98.1 [degF] 109 /min 98 % 140/100 mm[Hg] STANTON Arteaga [facility] [employer] [facility] 3 16:45:31 Date Recorded Body height Body mass index (BMI) Body weight Body temperature Heart rate Oxygen saturation Systolic And Diastolic Provider Name and Address Organization Details Last Updated DateTime 4 172.72 cm 45 kg/m2 370370. 34 g 98.5 [degF] 87 /min 98 % 132/72 mm[Hg] Loren Page MA [facility] [employer] [facility] 4 16:14:34 Date Recorded Body mass index (BMI) Body height Oxygen saturation Heart rate Body temperature Body weight Systolic And Diastolic Provider Name and Address Organization Details Last Updated DateTime 1 48.8 kg/m2 172.72 cm 97 % 107 /min 97.7 [degF] 137793. 15 g 124/80 mm[Hg] Not Available [facility] 3 09:24:55 Date Recorded Body height Body mass index (BMI) Body weight Body temperature Heart rate Oxygen saturation Systolic And Diastolic Provider Name and Address Organization Details Last Updated DateTime 4 172.72 cm 45.8 kg/m2 632477. 3 g 98 [degF] 93 /min 98 % 120/68 mm[Hg] Loren Page MA [facility] [employer] [facility] 4 16:19:06 Date Recorded Body mass index (BMI) Body height Oxygen saturation Heart rate Body temperature Body weight Systolic And Diastolic Provider Name and Address Organization Details Last Updated DateTime 1 48 kg/m2 172.72 cm 97 % 125 /min 96.8 [degF] 823608. 19 g 140/90 mm[Hg] Not Available [facility] 3 09:24:55 Social History Question Answer Notes LastModified by Organizat ion Details LastModified Time Tobacco Smoking Status Current Every Day Smoker Not Available [facility] 01/09/2023 09:24:07 What Is Your Level Of Caffeine Consumption? Occasional Information not available 03/05/2024 In The 14 Days Before Symptom Onset, Have You Had Close Contact With A Laboratory-confi rmed COVID-19 While That Case Was Ill? No [id number] Information not available 01/09/2023 In The 14 Days Before Symptom Onset, Have You Had Close Contact With A Person Who Is Under Investigation For COVID-19 While That Person Was Ill? No [id number] Information not available 01/09/2023 What Type Of Diet Are You Following? REGULAR Information not available 03/05/2024 Which Illicit Or Recreational Drugs Have You Used? Marijuana Information not available 03/05/2024 Have There Been Any Changes To Your Family Or Social Situation? No Information not available 03/05/2024 Do You Use Insect Repellent Routinely? No Information not available 03/05/2024 Where Do You Live? SingleLevelHouse Information not available 03/05/2024 What Was The Date Of Your Most Recent Tobacco Screening? 06/30/2024 Information not available 06/30/2024 Do You Have Any Pets? Yes Information not available 03/05/2024 What Is Your Relationship Status? Single Information not available 03/05/2024 Do You Use Your Seat Belt Or Car Seat Routinely? Yes Information not available 03/05/2024 Do You Have Smoke And Carbon Monoxide Detectors In Your Home? Yes Information not available 03/05/2024 At What Age Did You Start Smoking Tobacco? 17 Information not available 03/05/2024 Are You Passively Exposed To Smoke? Yes Information not available 03/05/2024 Are There Any Smokers In Your House? No Information not available 03/05/2024 How Much Tobacco Do You Smoke? 0.5 PPD [id number] Information not available 01/09/2023 Do You Use Sunscreen Routinely? No Information not available 03/05/2024 How Many Years Have You Smoked Tobacco? 6 [id number] Information not available 01/09/2023 Have You Recently Traveled Abroad? No Information not available 03/05/2024 Have You Used IV Drugs? No Information not available 03/05/2024 Do You Have Any Dietary Restrictions? No Information not available 03/05/2024 Sex: Unknown Functional Status Question Answer Note LastModified by Organizat ion Details LastModified Time Do you use any illicit or recreational drugs? Yes Information not available 03/05/2024 What is your level of alcohol consumption? None [id number] Information not available 01/09/2023 Are you currently employed? 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 Moderate Information not available 03/05/2024 Mental Status Question Answer Note LastModified by Organization D etails LastModified Time Do you feel stressed (tense, restless, nervous, or anxious, or unable to sleep at night)? [id number] Information not available 03/05/2024 Family History Relationship Description Onset Age of this Age Resolved Age Notes LastModified by Organization Details LastModified Time Mother Atrial fibrillation [id number] Not available 01/09/2023 09:24:29 Maternal Grandfather Family history of malignant neoplasm [id number] Not available 01/09/2023 09:24:29 Medical History No medical history recorded. Gynecological History Statement/Question Response How many live births 0 Date of Last Pap Current Control Method None Age at Menarche 13 Date of LMP 05/30/2024 Obstetrics History GPAL:G 0 P 0 0 0 0 Type Value Multiple Births 0 Full Term 0 Induced 0 Spontaneous 0 Premature 0 Living 0 Ectopics 0 Total 0 Immunizations Vaccine Type Date Status Note Provider Nam e and Address Organization Details Recorded Time Influenza, split virus, quadrivalent, preservative 7 completed Makayla Casillas APRN [address], [address], [place], [address], [employer] [facility] [employer] 06/25/2024 11:20:07 Hib, unspecified formulation 8 completed Makayla Casillas APRN [address], [address], [place], [address], [employer] [facility] [employer] 06/25/2024 11:20:07 IPV 2 completed Makayla Casillas APRN [address], [address], [place], [address], [employer] [facility] [employer] 06/25/2024 11:20:07 MMR 8 completed Makayla Casillas APRN [address], [address], [place], [address], [facility] [employer] [facility] [employer] 06/25/2024 11:20:07 MMR 2 elmer Casillas APRN [address], [address], [place], [address], [facility] [employer] [facility] [employer] [facility] [facility] 06/25/2024 11:20:07 COVID-19 vaccine, vector-nr, rS-Ad26, PF, 0.5 mL 2 completed Makayla Casillas APRN [address], [address], [place], [address], [facility] [employer] [facility] 06/25/2024 11:20:07 COVID-19 vaccine, vector-nr, rS-Ad26, PF, 0.5 mL 1 completed Makayla Casillas APRN [address], [address], [place], [address], [facility] [employer] [facility] 06/25/2024 11:20:07 influenza, unspecified formulation 0 completed Makayla Casillas APRN [address], [address], [place], [address], [facility] [employer] [facility] [employer] [facility] 06/25/2024 11:20:08 influenza, unspecified formulation 3 completed Makayla Casillas APRN [address], [address], [place], [address], [facility] [employer] [facility] [employer] [facility] 06/25/2024 11:20:08 Tdap 3 completed Makayla Casillas APRN [address], [address], [place], [address], [facility] [employer] [facility] [employer] [facility] 06/25/2024 11:20:08 Tdap 8 completed Makayla Casillas APRN [address], [address], [place], [address], [facility] [employer] [facility] [employer] 06/25/2024 11:20:08 varicella 7 completed Makayla Casillas APRN [address], [address], [place], [address], [facility] [employer] [facility] 06/25/2024 11:20:08 varicella 7 completed Makayla Casillas APRN [address], [address], [place], [address], [facility] [employer] [facility] [employer] [facility] 06/25/2024 11:20:08 OPV, trivalent 7 completed Makayla Casillas APRN [address], [address], [place], [address], [facility] [employer] [facility] 06/25/2024 11:20:08 OPV, trivalent 7 completed Makayla Casillas APRN [address], [address], [place], [address], [facility] [employer] [facility] [employer] [facility] 06/25/2024 11:20:08 OPV, trivalent 7 completed Makayla Casillas APRN [address], [address], [place], [address], [facility] [employer] [facility] [employer] [facility] 06/25/2024 11:20:08 DTP-Hib 7 completed Makayla Casillas APRN [address], [address], [place], [address], [facility] [employer] [facility] [employer] [facility] 06/25/2024 11:20:08 DTP-Hib 7 completed Makayla Casillas APRN [address], [address], [place], [address], [employer] [facility] [employer] [facility] 06/25/2024 11:20:08 DTP-Hib 7 completed Makayla Casillas APRN [address], [address], [place], [address], [employer] [facility] [employer] [facility] 06/25/2024 11:20:08 influenza, split (incl. purified surface antigen) 1 completed Makayla Casillas APRN [address], [address], [place], [address], [employer] [facility] [employer] [facility] 06/25/2024 11:20:08 Novel [id number] 0 completed Makayla Casillas APRN [address], [address], [place], [address], [facility] [employer] [facility] [employer] [facility] 06/25/2024 11:20:08 HPV, quadrivalent [address], [place], [address], [employer] 06/25/2024 11:20:08 HPV, quadrivalent 8 completed Makayla Casillas APRN [address], [address], [place], [address], [employer] 06/25/2024 11:20:08 HPV, quadrivalent 7 completed [address], [place], [address], [employer] 06/25/2024 11:20:08 Td (adult) 0 completed [address], [place], [address], [employer] 06/25/2024 11:20:08 Hep B, adolescent or pediatric 7 completed GLENN [address], [place], [address], [employer] 06/25/2024 11:20:08 Hep B, adolescent or pediatric 7 completed GLENN [address], [place], [address], [employer] 06/25/2024 11:20:08 Hep B, adolescent or pediatric 7 completed GLENN [address], [place], [address], [employer] 06/25/2024 11:20:08 Hep A, ped/adol, 2 dose 0 completed Makayla Casillas APRN [address], [address], [place], [address], [employer] 06/25/2024 11:20:08 Hep A, pediatric, unspecified formulation 1 completed Makayla Casillas APRN [address], [place], [address], [facility] [employer] [facility] [employer] [facility] 06/25/2024 11:20:08 meningococcal MCV4P 5 completed Makayla Casillas APRN [address], [place], [address], [employer] [facility] [employer] [facility] 06/25/2024 11:20:08 DTaP 2 completed Makayla Casillas APRN [address], [address], [place], [address], [employer] [facility] [employer] [facility] 06/25/2024 11:20:08 DTaP 8 completed Makayla Casillas APRN [address], [address], [place], [address], [employer] [facility] [employer] 06/25/2024 11:20:08 meningococcal MCV4, unspecified formulation 0 completed Makayla Casillas APRN [address], [address], [place], [address], [employer] [facility] [employer] 06/25/2024 11:20:08 IPV 7 completed Makayla Casillas APRN [address], [place], [address], [employer] [facility] [employer] 06/25/2024 11:20:17 Hep A, ped/adol, 2 dose 1 completed Makayla Casillas APRN [address], [facility] [address], [place], [address], [employer] [facility] [employer] 06/25/2024 11:20:18 Past Encounters Encounter ID Performer Location Encounter Start Date Encounter Closed Date Diagnosis/Indication Diagnosis SNOMED-CT Code Diagnosis ICD10 Code Diagnosis IMO Codes Diagnosis Note [id number] Jessica Morin MD [facility] Swetha yuridia [address] [place] [address] [place] [address] 05/08/2021 00:00:00 05/08/2021 21:54:51 [id number] Jessica Morin MD [facility] Swetha phillips [address] [place] [address] [place] [address] 06/07/2021 00:00:00 06/08/2021 06:14:46 [id number] Jessica Morin MD [facility] James alan [address] [place] [address] [place] [address] 06/20/2021 00:00:00 06/21/2021 06:25:48 [id number] Jessica Morin MD [facility] James alan [address] [place] [address] [place] [address] 09/19/2021 00:00:00 09/19/2021 20:13:32 [id number] Jessica Morin MD [facility] Swetha phillips [address] [place] [address] [place] [address] 02/12/2023 16:37:13 02/12/2023 17:21:42 Gynecologic examination 30576887 Z01.419 Depressive disorder 8183 9007 F32.A Elevated blood-pressure reading without diagnosis of hypertension 670100484 R03.0 Monitor BP away from here watch salt in diet. If remains high will need f/u appt. [id number] Juan Manuel valdez MD [facility] Internal Med [facility] [address] [facility], [facility] [address] [place] [address] 03/05/2024 15:52:29 03/05/2024 17:21:52 Screening - NAD 978596787 Z13.9 Get yearly flu shotGet tdap if not done, get COVID 19 vaccines PAP: Get a referral RTC in 3 months, do labs, ER if worse, she did verbalize her understand ing of the above Gynecologi c examination 13852145 Z01.419 Moderate r ecurrent major depression 82748591 F33.1 On bupropion XL 300mg daily, does well, renewedNot suicidal or homicidalD eclines any psychiatry referrals Asthma 611030613 J45.90 9 On albuterol HFA, renewed 03/05/2024 Does well on this Long-term drug therapy 378054857 Z79.899 Vitamin D deficiency 347 46684 E55.9 Serum dawit min B12 below reference range 526641869 R79.89 Cigarette smoker 5179805 7 F17.210 Advised to quit, does not want any interventi ons Liver enzy mes level above reference range 604563373 R74.01 Did have elevated LFTs as per her history, get labs [id number] Juan Manuel valdez MD [facility] Internal Med [place] [facility] [address] [place] [address] 06/30/2024 16:06:26 06/30/2024 16:32:42 Asthma [id number] J45.909 Leukocytosis [id number] D 72.829 Moderate r ecurrent major depression [id number] F33.1 Hyperlipidemia [id number] E78.5 Health Concerns Section Related Observation LastModified by Organization Detai ls LastModified Time None Recorded Concern Status LastModified by Organization Details LastModified Time None Recorded Advance Directives Directive None Recorded Payers Insurance Date Sequence Insurance Name Policy Number Policy Stokes Covered Member ID Stokes Member ID Guarantor Name 10/04/2025 1 [email or web address] [facility] [employer] - OPEN ACCESS III (PPO) [id number] [facility] [employer] [id number] Aurora Osmin 06/30/2024 1 [facility] - DOS ON OR AFTER 21 (MEDICAID REPLACEMENT - HMO) Aurora Osmin [id number] Aurora Osmin Notes Date Note Type Note Provider Name and Address Organization Details Recorded Time 02/12/2023 text/html Here today for wwe and med f/u. Last pap never had one. Has been sexually active. No complaints or issues. Mother had cervical cancer and PGM breast cancer. Does own sbe. LMP 01/27/23 just got taken nexplanon out. Needs a refill of buproprion. Jessica Morin MD [address] [facility], [place], [address], [facility] 02/13/2023 05:50:49 03/05/2024 text/html OV 03/05/2024:Here to establish care Present Hx:AsthmaDepressi onSmoker Here to discuss above, here with her mother, she is doing well today Juan Manuel Villar MD [address] [facility] [address], [place], [address], [employer] [facility] [employer] [facility] 03/05/2024 18:28:43 06/30/2024 text/html Aurora presents today to establish care with this provider. Makayla Casillas APRN [address], [facility] [address], [place], [address], Cuffed and Wanted 06/30/2024 16:30:10 OBGyn Episode No OBEpisode recorded.
--- OUTSIDE RECORDS SUMMARY | 2025-10-04 20:16 | XMS_ITS | Clinical Summary ---
Author Organization [facility] Address [address] [place] [id number] Care Team Providers Care Dining Room Supervisor Name Role Phone Unavailable Primary Care Provider Unavailabl e Social History Tobacco Use Types Packs/Day Years Used Date Smoking Tobacco: Never Assessed Comments Unknown Sex and Gender Information Value Date Recorded Sex Assigned at Not on file Legal Sex Female 4:31 PM CDT Gender Identity Not on file Sexual Orientation Not on file Plan of Treatment Health Maintenance Due Date Last Done Comments Cervical Cancer Screening Pa p Smear (Age 21 to 29) Every 3 Years 1997 Cervical Cancer Screening 1997 Annual Physical 01/27/2000 Hepatitis C 2015 DTaP, Tdap and Td Vaccines ( 1 - Tdap) 01/27/2016 Hepatitis B Vaccines (1 of 3 - 19+ 3-dose series) 01/27/2016 HPV Vaccines (1 - 3-dose SCD M series) 01/27/2024 COVID-19 Vaccine (2024-2 6 season) 2025 Influenza Adult (#1) 2025 Hepatitis A Vaccines Aged Out No long er eligible based on patient's age to complete this topic Meningococcal B Vaccine Aged Out No l onger eligible based on patient's age to complete this topic Meningococcal Vaccine Aged Out No moira galilea eligible based on patient's age to complete this topic Pneumococcal Vaccine: Pediat rics (0 to 5 Years) and At-Risk Patients (6 to 49 Years) Aged Out No longer eligible b ased on patient's age to complete this topic RSV Immunizations Under 20 Months Aged Out No longer eligible based on patient's age to complete this topic
[2025-10-04 20:20] LABS: Estimated CRCL calculation 135 ml/min; Estimated Glomerular Filt Rate > 60
[2025-10-04 20:25] LABS: BEDSIDEPREGUCG Negative (Negative)
--- NOTE | 2025-10-04 21:23 | ED.GENADULT ---
HPI - General Adult General Chief complaint: Unspecified Stated complaint: R side tonsil/throat swelling Time Seen by Provider: 10/04/25 19:38 History of Present Illness HPI narrative: Patient is a 22-year-old female who presents ER sore throat. Ongoing for a couple days. Worse on the right side. Mild discomfort with swelling. No fevers or chills. 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 Related Data Home Medications ?Medication ?Instructions ?Recorded ?Confirmed ?Last Taken ?Type No Home Medications 02/19/21 02/19/21 Unknown History Allergies Allergy/AdvReac Type Severity Reaction Status Date / Time sulfamethoxazole Allergy Mild HIVES Verified 10/04/25 19:19 trimethoprim Allergy Mild HIVES Verified 10/04/25 19:19 Review of Systems Constitutional: Constitutional: Reports no additional constitutional complaints ENT: Reports system reviewed and no additional complaints, except as documented Cardiovascular: Cardiovascular: Reports no additional cardiovascular complaints Respiratory: Respiratory: Reports no additional respiratory complaints [facility] Past Medical History Medical History (Updated 10/04/25 @ 21:36 by Augustine Taylor MD) Obesity Family History Family History (System 07/09/23 @ 15:00 by Dawn Monte) Other Diabetes mellitus Heart disease Social History Social History (System 07/09/23 @ 15:00 by Dawn Monte) Gender identity (if verbalized by the patient): Female Exam Narrative: GENERAL: Well-appearing, well-nourished, and in no acute distress. HEAD: Normocephalic, atraumatic. ENT: Mucous membranes moist. Fullness of the right tonsil without exudate. The peritonsillar area is also full. Is kissing knee uvula but there is no uvular shift. Tolerating oral secretions without issue. NECK: Supple. CHEST: Clear to auscultation. No respiratory distress. HEART: Regular rate and rhythm. Normal peripheral pulses. EXTREMITIES: Normal range of motion. No edema. NEURO: Alert and oriented x3. PSYCH: Normal mood and affect. Course Course Emergency Course: Will give a dose of Decadron for swelling. No WINDOW CUTTER. Strep negative. Discharge home. Recommend some humidified air. Vital Signs Vital signs: Vital Signs Temperature 97.4 F L 10/04/25 19:21 Pulse Rate 110 H 10/04/25 19:21 Respiratory Rate 15 10/04/25 19:21 Blood Pressure 152/93 H 10/04/25 19:21 Pulse Oximetry 98 10/04/25 19:21 Oxygen Delivery Room Air 10/04/25 19:21 Temperature 98.4 F 10/04/25 19:30 Pulse Rate 100 10/04/25 19:30 Respiratory Rate 14 10/04/25 19:30 Blood Pressure 152/93 H 10/04/25 19:30 Pulse Oximetry 100 10/04/25 19:30 Oxygen Delivery Room Air 10/04/25 19:30 Medical Decision Making Vital Signs Vital Signs: Vital Signs Temperature 97.4 F L 10/04/25 19:21 Pulse Rate 110 H 10/04/25 19:21 Respiratory Rate 15 10/04/25 19:21 Blood Pressure 152/93 H 10/04/25 19:21 Pulse Oximetry 98 10/04/25 19:21 Oxygen Delivery Room Air 10/04/25 19:21 Temperature 98.4 F 10/04/25 19:30 Pulse Rate 100 10/04/25 19:30 Respiratory Rate 14 10/04/25 19:30 Blood Pressure 152/93 H 10/04/25 19:30 Pulse Oximetry 100 10/04/25 19:30 Oxygen Delivery Room Air 10/04/25 19:30 Lab Data Lab results reviewed: Yes I reviewed the patient's lab results. 10/04/25 20:02 Labs: Lab Results 10/04/25 10/04/25 10/04/25 Range/Units 19:37 20:02 20:23 Creatinine 0.79 (0.7-1.0) mg/dL Estim Creat Clear Calc 135 ml/min Estimated GFR > 60 (59 - ) POC Urine HCG, Qual Negative (Negative) Group A Strep (PCR) Not detected (Negative) Imaging Data Radiologist's impression: ITS Impressions Soft Tissue Neck CT 10/04/25 21:16 IMPRESSION: 1. Significant, asymmetric enlargement of the right tonsil. Heterogeneous enhancement. No well-circumscribed peritonsillar abscess. 2 enlarged lymph nodes along the jugular chain on the right side measuring up to 10 mm in short axis. Discharge Plan Discharge Clinical Impression: Acute tonsillitis Patient Disposition: Home Condition: Stable Instructions: Tonsillitis (ED) Additional Instructions: Return ER if he cannot swallow, you cannot keep down food water, you lose consciousness, you have additional concerns. It is recommended you use humidified air by her bed at night to help keep the mucous membranes moist. You were given steroids help with swelling in your throat. Patient Language: Nepali Prescriptions: No Action No Home Medications cephalexin 500 mg capsule 500 mg PO Q8H 10 Days Qty: 30 0RF ondansetron 4 mg tablet,disintegrating 4 mg PO Q8H PRN (Reason: nausea and vomiting) Qty: 10 0RF Follow-up/Referrals: Jian,MD Juan Manuel [Primary Care Provider, Unknown] - 1 Week Stand Alone Forms: Work/School Release IP
[2025-10-04] MEDS: dexAMETHasone SOD PHOS INJ 10 MG/ML 1 ML VIAL IV PUSH (21:45)
[2025-10-04 21:50] VITALS: BP 135/88; PULSE 77; RESP 16; O2SAT 99
== END 2025-10-04 21:51 | disposition home or self-care (01) ==
PROVIDERS: Student in an Organized Health Care Education/Training Program; Emergency Provider Emergency Medicine; PCP Internal Medicine
DX: J03.90 Acute tonsillitis, unspecified (principal); E66.9 Obesity, unspecified; Z68.42 Body mass index [BMI] 45.0-49.9, adult
CPT/HCPCS: 36415; 70491; 81025; 82565; 87651; 96374; 99284; J1100; Q9967